=== PATIENT | female | born 1965 | race Caucasian/White ===

== ENCOUNTER 2020-04-16 10:23 | Outpatient (CLI) | payer OTHER, SELFPAY ==
--- NOTE | ~2020-04-16 | XR_ITS ---
EXAMINATION: XR knee RT min 4V DATE: 04/16/2020 10:49 INDICATION: Right knee pain and swelling. TECHNIQUE: 4 views of right knee were obtained. COMPARISON: None. FINDINGS: There is varus attenuation at the knee. No fracture. There is moderate osteoarthritis of me dial compartment and mild osteoarthritis of lateral and patellofemoral compartments. There is a moder ate-sized knee joint effusion. IMPRESSION: 1. Moderate right knee osteoarthritis. 2. Moderate-sized right knee joint effusion. Reviewed, dictated and finalized at location A.
== END 2020-04-16 10:24 | disposition home or self-care (01) ==
PROVIDERS: PCP Family Medicine
DX: M25.561 Pain in right knee (principal); M17.11 Unilateral primary osteoarthritis, right knee; M25.461 Effusion, right knee
CPT/HCPCS: 73564

== ENCOUNTER 2021-08-18 09:34 | Outpatient (CLI) | payer OTHER, SELFPAY ==
--- NOTE | ~2021-08-18 | MR_ITS ---
EXAMINATION: MR knee LT wo con DATE: 08/18/2021 10:35 INDICATION: Primary osteoarthritis of the left knee with chronic left knee pain. TECHNIQUE: Magnetic resonance imaging (MRI) of the left knee was performed without intravenous contra st. Sequences included coronal PD-weighted FSE, coronal PD-weighted FS FSE, sagittal T2-weighted FSE , sagittal PD-weighted FS FSE and axial PD weighted fat saturated FSE. COMPARISON: Left femur MRI dated 08/27/2017 FINDINGS: Medial compartment: Tear contacting the inferior articular surface at the midpoint of the body of the medial meniscus. On the coronal images the configuration suggests a longitudinal tear is evident on only one the single coronal images on both sequences with appearance on both the axial and sagittal images favoring a rad ial tear. Partial-thickness cartilage loss with mild chondral surface irregularity along the weightbe aring medial femoral condyle and the medial tibial plateau. There is mild subarticular edema at the a nterior aspect of the medial tibial plateau. Lateral compartment: Lateral meniscus is normal. Articular cartilage is normal. Patellofemoral compartment: Partial thickness patellar cartilage loss with more focal deep fissuring with subarticular edema at t he medial patellar facet and apical ridge. Deep chondral fissuring with subtle underlying cortical ir regularity inferolateral aspect of the medial trochlea. Ligaments and tendons: Anterior and posterior cruciate ligaments are normal. The medial collateral ligament and fibular alanis ateral ligament complex are normal. The extensor mechanism is normal. The visualized medial and later al hamstring tendons as well as the iliotibial band are normal. Fluid: Small to moderate left knee joint effusion with mild synovitis at the suprapatellar pouch. No loose o steochondral bodies identified. Osseous/other: Cystic change at the proximal tibia near the footplate of the posterior cruciate ligament and posteri or horn of the medial meniscus. No fracture or pathologic marrow replacing process. IMPRESSION: 1. Tear at the body of the medial meniscus most likely radial configuration. 2. Medial compartment predominant tricompartmental osteoarthritis with regions of moderate and high-g rade chondromalacia. Reviewed, dictated and finalized at location A. IMPRESSION: 1. Tear at the body of the medial meniscus most likely radial configuration. 2. Medial compartment predominant tricompartmental osteoarthritis with regions of moderate and high-grade chondromalacia.
== END 2021-08-18 09:35 | disposition home or self-care (01) ==
PROVIDERS: PCP Family Medicine; Visit Provider Nurse Practitioner
DX: M17.12 Unilateral primary osteoarthritis, left knee (principal); M94.262 Chondromalacia, left knee; S83.242A Other tear of medial meniscus, current injury, left knee, initial encounter
CPT/HCPCS: 73721

== ENCOUNTER 2022-02-02 15:07 | Outpatient (CLI) | payer OTHER, SELFPAY ==
--- NOTE | ~2022-02-02 | CT_ITS ---
EXAMINATION: CT shoulder RT wo con DATE: 02/02/2022 15:51 INDICATION: Right shoulder osteoarthritis. TECHNIQUE: Computed tomography (CT) of the right shoulder was performed without intravenous contrast. Automated exposure control and iterative reconstruction technique were employed. The dose-length pro duct was 474.07 mGy-cm. COMPARISON: None FINDINGS: There is mild emphysema. There is a 4 mm nodule in right lung upper lobe, likely benign. Th ere is a total right shoulder arthroplasty in near-anatomic alignment. No periprosthetic lucency to s uggest loosening or infection. There is moderate osteoarthritis of acromioclavicular joint. There is no asymmetric fatty atrophy of the rotator cuff muscle bellies. IMPRESSION: 1. Total right shoulder arthroplasty in near-anatomic alignment. 2. Moderate osteoarthritis of right acromioclavicular joint. Reviewed, dictated and finalized at location A.
== END 2022-02-02 15:08 | disposition home or self-care (01) ==
PROVIDERS: PCP Family Medicine; Visit Provider Nurse Practitioner Adult Health
DX: M19.011 Primary osteoarthritis, right shoulder (principal); J43.9 Emphysema, unspecified; Z96.611 Presence of right artificial shoulder joint
CPT/HCPCS: 73200

== ENCOUNTER 2022-03-01 15:37 | Outpatient (CLI) | payer OTHER, SELFPAY ==
--- NOTE | ~2022-03-01 | XR_ITS ---
EXAMINATION: XR hip LT min 2V DATE: 03/01/2022 16:06 INDICATION: Left hip pain. TECHNIQUE: 2 views of left hip were obtained. COMPARISON: None. FINDINGS: Bone alignment is normal. No fracture. Left hip joint space is normal. IMPRESSION: 1. Normal left hip. Reviewed, dictated and finalized at location A. IMPRESSION: 1. Normal left hip.
== END 2022-03-01 15:38 | disposition home or self-care (01) ==
PROVIDERS: PCP Family Medicine; Visit Provider Nurse Practitioner Adult Health
DX: M16.12 Unilateral primary osteoarthritis, left hip (principal)
CPT/HCPCS: 73502

== ENCOUNTER 2022-10-06 11:39 | Emergency (ER) | payer OTHER, SELFPAY ==
--- NOTE | ~2022-10-06 | XR_ITS ---
EXAMINATION: XR knee LT 3V DATE: 10/06/2022 12:14 INDICATION: Left knee pain. Contusion. TECHNIQUE: 3 views of left knee were obtained. COMPARISON: None. FINDINGS: Bone alignment is normal. No fracture. There is moderate osteoarthritis of medial compartme nt and mild osteoarthritis of lateral and patellofemoral compartments. No knee joint effusion. IMPRESSION: 1. Moderate left knee osteoarthritis. Reviewed, dictated and finalized at location A. PREPARATION KITCHEN AIDE
--- NOTE | ~2022-10-06 | XR_ITS ---
EXAMINATION: XR knee RT 3V DATE: 10/06/2022 12:14 INDICATION: Right knee pain and contusion. TECHNIQUE: 3 views of right knee were obtained. COMPARISON: Right knee radiographs 04/16/2020 FINDINGS: Bone alignment is normal. There is a nondisplaced sagittal fracture of patella through the lateral facet. There is moderate osteoarthritis of medial compartment and mild osteoarthritis of late ral and patellofemoral compartments. There is a moderate-sized knee joint effusion. IMPRESSION: 1. Nondisplaced sagittal fracture of patella involving the lateral facet. 2. Moderate right knee osteoarthritis. 3. Moderate-sized hemarthrosis. Reviewed, dictated and finalized at location A. [employer]
--- NOTE | 2022-10-06 11:47 | ED.EXTPRO ---
HPI - Extremity Problem General Stated complaint: Both Knee Pain Time Seen by Provider: 10/06/22 11:45 Source: patient Mode of arrival: ambulatory Limitations: no limitations History of Present Illness HPI Narrative: Ms. Holden is a 57-year-old female patient presenting to clinic today with complaints of bilateral knee pain after falling just prior to arrival today. she reports that she was walking her dog when her dog got away from her on the leash and she gwyn the dog and jumped to try to catch the leash and landed on her knees and hands she reports just small abrasions to the hands but is more concerned about her knee pain. Is having some swelling to the right knee and pain to the anterior knees. Does have abrasions to bilateral knees as well. History of knee osteoarthritis. States that it feels as though her knee cap is pulling upwards when she is walking Related Data Allergies Allergy/AdvReac Type Severity Reaction Status Date / Time No Known Allergies Allergy Unverified 05/23/19 08:06 Review of Systems Review of Systems: Pertinent positives per HPI. Patient denies any fever, chills, rash, headache, visual changes, dizziness, cough, runny nose, sore throat, shortness of breath, chest pain, palpitations, nausea, vomiting, diarrhea, constipation, abdominal pain, or any urinary issues. FOR[facility]LY [facility] Family History Family History Other Diabetes mellitus Family history of malignant neoplasm Social History Social History Smoking status: Current every day smoker Alcohol intake: current Comments At the time of my signature, I reviewed and agree with the nursing past medical, surgical, social, and family history. There is no relevant family history pertinent to the patient complaint. Exam Narrative: General: Well-developed, well nourished, in no apparent distress Head: Normocephalic, atraumatic. Cardio: Regular rate and rhythm, s1 and s2 normal, no murmur appreciated. Resp: Clear to auscultation bilaterally, no rhonchi, rales, wheezing or rubs. Musculoskeletal: No deformity, right knee swelling,tender to palpation to the anterior bilateral knees, pain with flexion-extension of the knee with crepitus bilaterally,grossly normal range of motion, muscle strength strong and equal, peripheral pulse strong, no edema, no cyanosis, normal gait and station Course Course Emergency Course: Portions of this record may have been created with voice recognition software. Level of Care: Express Care Visit Vital Signs Vital signs: Vital Signs Temperature 36.5 C 10/06/22 11:49 Pulse Rate 76 10/06/22 11:49 Respiratory Rate 18 10/06/22 11:49 Blood Pressure 118/73 10/06/22 11:49 Pulse Oximetry 98 10/06/22 11:49 Oxygen Delivery Room Air 10/06/22 11:49 Temperature 36.5 C 10/06/22 11:49 Pulse Rate 76 10/06/22 11:49 Respiratory Rate 18 10/06/22 11:49 Blood Pressure 118/73 10/06/22 11:49 Pulse Oximetry 98 10/06/22 11:49 Oxygen Delivery Room Air 10/06/22 11:49 Vital signs reviewed MDM - Extremity (Nontraumatic) MDM Narrative Medical decision making narrative: At the time of visit patient is resting on the exam table. X-rays were performed of the bilateral knee and show a sagittal fracture of the right patella involving the lateral facet with hemoarthrosis and moderate osteoarthritis. Left x-ray was negative for fracture however shows moderate osteoarthritis. Patient was placed in a knee immobilizer and Sahil wrap. Supportive measures were discussed with the patient she voiced understanding discharge instructions. Will have her follow-up with Dr. De La Paz she is to call his office this afternoon for an appointment to try to get in tomorrow or early next week. Differential Diagnosis Differential diagnosis: Likely other ( Knee fracture, patella fracture, osteoarthritis,
[2022-10-06 11:49] VITALS: BP 118/73; PULSE 76; RESP 18; TEMP 36.5; O2SAT 98
== END 2022-10-06 13:00 | disposition home or self-care (01) ==
PROVIDERS: Emergency Provider Nurse Practitioner Family; PCP Family Medicine
DX: S80.212A Abrasion, left knee, initial encounter (principal); S80.211A Abrasion, right knee, initial encounter; W19.XXXA Unspecified fall, initial encounter; Y93.K1 Activity, walking an animal; M25.061 Hemarthrosis, right knee; S82.091A Other fracture of right patella, initial encounter for closed fracture; S80.02XA Contusion of left knee, initial encounter; S80.01XA Contusion of right knee, initial encounter; M17.0 Bilateral primary osteoarthritis of knee; F17.290 Nicotine dependence, other tobacco product, uncomplicated
CPT/HCPCS: 73562; 99214; G0463; L1830

== ENCOUNTER 2023-01-31 15:50 | Outpatient (CLI) | payer OTHER, SELFPAY ==
--- NOTE | ~2023-01-31 | MR_ITS ---
EXAMINATION: MR knee LT wo con DATE: 01/31/2023 16:40 INDICATION: Medial meniscal tear Anterior and medial left knee pain TECHNIQUE: Magnetic resonance imaging (MRI) of the left knee was performed without intravenous contra st. Sequences included coronal PD-weighted FSE, coronal PD-weighted FS FSE, sagittal T2-weighted FSE , sagittal PD-weighted FS FSE and axial PD weighted fat saturated FSE. COMPARISON: Left knee radiographs dated 10/06/2022 FINDINGS: Medial compartment: Small tear involving the inferior half of the body of the medial meniscus. The tear appears likely co mplex with combination of longitudinal horizontal tear plane extending to the inferior articular surf charles and small radial tear plane involving the portion meniscus inferior to the horizontal tear plane. There is deep chondral ulceration involving greater than 50% the cartilage thickness along the anter ior to central weightbearing medial femoral condyle and anterior aspect of the medial tibial plateau, both with small regions of mild underlying subarticular edema-like signal change. Small marginal ost eophytes are present. Lateral compartment: Lateral meniscus is normal. Small partial-thickness chondral fissure without degenerative subchondral changes at the central aspect of the lateral tibial plateau. Patellofemoral compartment: Partial-thickness chondral ulceration and deep fissuring with minimal underlying subarticular edema-l lina signal change at the medial patellar facet and apical ridge. Shallow chondral ulceration and deep fissuring at the inferior aspect of the medial trochlea. Ligaments and tendons: Anterior and posterior cruciate ligaments are normal. The medial collateral ligament and fibular alanis ateral ligament complex are normal. Patellar tendon is normal. Mild quadriceps tendinopathy. The visu alized medial and lateral hamstring tendons as well as the iliotibial band are normal. Fluid: Small left knee joint effusion with mild synovitis at the suprapatellar pouch. No loose osteochondral bodies identified. Osseous/other: Intraosseous ganglion cyst deep to the tibial footplate of the posterior horn of the medial meniscus and tibial insertion of the posterior cruciate ligament. No fracture or pathologic marrow replacing p rocess. IMPRESSION: 1. Small likely complex tear at the body of the medial meniscus. 2. Tricompartmental osteoarthritis, mild to moderate severity with moderate and high-grade chondromal acia in the medial compartment, mild with additional moderate and high-grade chondromalacia at the pa tellofemoral compartment and minimal with small region of moderate grade chondromalacia in the latera l compartment. Reviewed, dictated and finalized at location L. IMPRESSION: 1. Small likely complex tear at the body of the medial meniscus. 2. Tricompartmental osteoarthritis, mild to moderate severity with moderate and high-grade chondromalacia in the medial compartment, mild with additional mode rate and high-grade chondromalacia at the patellofemoral compartment and minima l with small region of moderate grade chondromalacia in the lateral compartment .
== END 2023-01-31 15:51 | disposition home or self-care (01) ==
PROVIDERS: PCP Family Medicine; Visit Provider Orthopaedic Surgery
DX: S83.242A Other tear of medial meniscus, current injury, left knee, initial encounter (principal); M17.12 Unilateral primary osteoarthritis, left knee; M94.262 Chondromalacia, left knee
CPT/HCPCS: 73721

== ENCOUNTER 2023-02-09 16:49 | Emergency (ER) | payer OTHER, SELFPAY ==
[2023-02-09 17:00] VITALS: BP 134/67; PULSE 83; RESP 20; TEMP 36.9; O2SAT 100
--- NOTE | 2023-02-09 17:02 | ED.SKABFB ---
HPI - Skin/Abscess/Foreign Bdy General Chief complaint: Skin/Abscess/Foreign Body Stated complaint: Arm Pit Pain Time Seen by Provider: 02/09/23 17:03 Source: patient, RN notes reviewed and old records reviewed Mode of arrival: ambulatory Limitations: no limitations History of Present Illness HPI narrative: 58-year-old female presents to the [facility] with lateral right breast lump and pain. States that she takes hydrocodone. Noticed the area for unknown amount of time. small less than 1 cm palpable nodule noted without erythema, orange peel looking, fluctuance to the lateral right breast. Related Data Home Medications Medication Instructions Recorded Confirmed cyclobenzaprine 10 mg tablet mg 02/09/23 hydrocodone 10 mg-acetaminophen tablet 02/09/23 325 mg tablet quetiapine 200 mg tablet mg 02/09/23 trazodone 100 mg tablet mg 02/09/23 Allergies Allergy/AdvReac Type Severity Reaction Status Date / Time No Known Allergies Allergy Verified 02/09/23 17:26 Review of Systems Review of Systems: All systems reviewed & are unremarkable except as noted in HPI and below Constitutional: Constitutional: Reports no additional constitutional complaints Eyes: Eyes: Reports no additional eye complaints ENT: Reports system reviewed and no additional complaints, except as documented Cardiovascular: Cardiovascular: Reports no additional cardiovascular complaints, Denies chest pain and Denies dyspnea Respiratory: Respiratory: Reports no additional respiratory complaints, Denies chest congestion, Denies cough and Denies dyspnea Gastrointestinal: Gastrointestinal: Reports no additional gastrointestinal complaints, Denies abdominal pain, Denies nausea and Denies vomiting Musculoskeletal: Musculoskeletal: Reports no additional musculoskeletal complaints Integumentary/Breasts: Skin/Breast: Reports as per HPI and Reports breast mass Neurologic: Reports system reviewed and no additional complaints, except as documented Psychiatric: Psychiatric: Reports no additional psychiatric complaints Allergic/Immunologic: Allergic/Immunologic: Reports no additional allergic/immunologic complaints REPLACED BY [facility] Family History Family History Other Diabetes mellitus Family history of malignant neoplasm Social History Social History Smoking status: Current every day smoker Alcohol intake: current Comments At the time of my signature, I reviewed and agree with the nursing past medical, surgical, social, and family history. There is no relevant family history pertinent to the patient complaint. Exam Const: General: cooperative, healthy appearing, comfortable, no acute distress, well developed, alert, anxious and well nourished Nutritional Appearance: well nourished Orientation/consciousness: patient oriented x3 Limitations: no limitations HENMT: Head: normal to inspection Ears: hearing grossly normal bilaterally and external ears normal Face/Nose/Sinus: Normal external nose present, Normal nares present, Normal nasal mucous membranes and turbinates present and normal facial exam Face and sinus: normal facial exam Mouth: Yes Normal oral and palatal mucosa present, Yes lip normal and Yes moist mucous membranes Eyes: General: appearance normal, both eyes and all related structures Alignment and Position: alignment normal Periorbital: periorbital findings normal Conjunctivae: conjunctivae normal Pupils: Equal, round and reactive pupils present EOM: EOMs intact bilaterally Neck: Neck: normal visual inspection, full ROM, no lymphadenopathy and no meningeal signs Chest: Chest palpation & inspection: normal inspection of the chest Breast/axilla inspection: normal inspection of the axillae, abnormal inspection of the breast (Tenderness to the 9:00 right breast) and no supernumerary breasts Resp: Effort & Inspection: normal re
== END 2023-02-09 17:31 | disposition home or self-care (01) ==
PROVIDERS: Emergency Provider Nurse Practitioner; PCP Family Medicine
DX: N64.4 Mastodynia (principal); F17.200 Nicotine dependence, unspecified, uncomplicated
CPT/HCPCS: 99211; G0463

== ENCOUNTER 2023-02-22 07:54 | Outpatient (CLI) | payer OTHER, SELFPAY ==
--- NOTE | 2023-02-22 08:50 | ECG_ITS ---
Measurements Intervals [place] Rate: 70 P: 16 SC: 160 QRS: 32 QRSD: 71 T: 60 QT: 374 QTc: 405 Interpretive Statements SINUS RHYTHM NORMAL ECG NO PREVIOUS ECG AVAILABLE FOR COMPARISON Electronically Signed On 02-22-2023 13:51:31 CDT by Uvaldo Red M.D.
[2023-02-22 09:32] LABS: Basophils Absolute Auto 0.1 K/mm3 (0.0-0.1); Basophils Percent Auto 0.8 % (0.2-1.2); Eosinophils Absolute Auto 0.4 K/mm3 (0-0.3); Eosinophils Percent Auto 5.4 % (0-4.4); Hematocrit 44.3 % (37.0-47.0); Immature Granulocyte Absolute 0.02 K/mm3 (0.00-0.031); Immature Granulocyte Percent A 0.3 % (0-0.5); Lymphocytes Absolute Auto 3.14 K/mm3 (0.9-3.2); Lymphocytes Percent Auto 43.3 % (18.3-44.2); Mean Corpuscular HGB Conc 33.9 g/dl (32-36); Mean Corpuscular Hemoglobin 32.1 pg (26-34); Mean Corpuscular Volume 94.7 fl (80-100); Mean Platelet Volume 9.9 fl (7.4-10.4); Monocytes Absolute Auto 0.6 K/mm3 (0.1-0.6); Neutrophils Absolute Auto 3.1 K/mm3 (1.3-6.7); Neutrophils Percent Auto 42.2 % (45.5-73.1); Platelet Count Result 202 k/mm3 (150-375); Red Blood Count 4.68 M/mm3 (4.2-5.4); Red Cell Distribution Width 12.4 % (11.5-14.5); White Blood Count 7.3 K/mm3 (4.5-10.0)
[2023-02-22 09:39] LABS: Albumin Level 4.8 g/dL (3.5-5.1); Estimated Glomerular Filt Rate > 60; Glucose 106 mg/dL (65-110)
[2023-02-22 09:44] LABS: Urine Cotinine POSITIVE
== END 2023-02-22 07:55 | disposition home or self-care (01) ==
LOC: ANHSURGERY 07:58
PROVIDERS: PCP Family Medicine; Visit Provider Orthopaedic Surgery
DX: Z01.812 Encounter for preprocedural laboratory examination (principal); Z01.810 Encounter for preprocedural cardiovascular examination; M17.11 Unilateral primary osteoarthritis, right knee
CPT/HCPCS: 80307; 82040; 82565; 82947; 83036; 85025; 87081; 93005

== ENCOUNTER 2023-05-09 08:48 | Outpatient (CLI) | payer OTHER, SELFPAY ==
--- NOTE | ~2023-05-09 | MM_ITS ---
EXAMINATION: MM screening radha BI w be HISTORY: Screening mammogram TECHNIQUE: Craniocaudal and mediolateral oblique 3-D tomosynthesis images were obtained and synthetic 2-D images were generated. CAD analysis was submitted and interpreted. COMPARISON: 02/20/2018 bilateral screening mammogram 03/27/2018 stereotactic biopsy right breast, reported benign BREAST PARENCHYMAL COMPOSITION: There are scattered areas of fibroglandular density. FINDINGS: Biopsy marker is noted in the mid to upper outer right breast. Scattered bilateral benign c alcifications. There is no evidence of suspicious mass, calcification, or architectural distortion to suggest malignancy in either breast. There has been no suspicious interval change. IMPRESSION: 1. No mammographic evidence of malignancy. 2. Recommend routine screening mammography in one year. BI-RADS Category 2: Benign finding(s). Reviewed, dictated and finalized at location A.
== END 2023-05-09 08:49 | disposition home or self-care (01) ==
LOC: ANHIMG 08:50
PROVIDERS: PCP Nurse Practitioner Adult Health; Visit Provider Nurse Practitioner Adult Health
DX: Z12.31 Encounter for screening mammogram for malignant neoplasm of breast (principal)
CPT/HCPCS: 77063; 77067

== ENCOUNTER 2023-10-26 12:58 | Outpatient (CLI) | payer OTHER, SELFPAY ==
[2023-10-26 14:05] LABS: Influenza A QL RT-PCR Negative (Negative); Influenza B QL RT-PCR Negative (Negative); RSV RNA, RT-PCR Negative (Negative); SARS-CoV-2 RNA PCR Positive (Negative)
== END 2023-10-26 12:59 | disposition home or self-care (01) ==
LOC: ANHLAB 13:02
PROVIDERS: PCP Nurse Practitioner Adult Health; Visit Provider Nurse Practitioner Adult Health
DX: J81.1 Chronic pulmonary edema (principal); R50.81 Fever presenting with conditions classified elsewhere; J34.89 Other specified disorders of nose and nasal sinuses; Z20.822 Contact with and (suspected) exposure to COVID-19
CPT/HCPCS: 87637

== ENCOUNTER 2024-02-12 14:31 | Outpatient (CLI) | payer OTHER, SELFPAY ==
--- NOTE | ~2024-02-12 | CT_ITS ---
EXAMINATION: CT abdomen pelvis wo con DATE: 02/12/2024 14:50 INDICATION: Cirrhosis and abdominal pain TECHNIQUE: Computed tomography (CT) of the abdomen and pelvis was performed without intravenous contr ast. The dose-length product (DLP) was 575.24 mGy-cm. Automated exposure control and iterative recons truction technique were employed. COMPARISON: None FINDINGS: A calcified nodule of the left lower lobe is consistent with old granulomatous disease. The heart size is normal. Punctate calcifications in an otherwise normal spleen likely represent healed granulomatous disease. There appears to be mild nodularity of the liver surface, consistent with hist ory of cirrhosis. The pancreas, gallbladder, and right adrenal gland are normal. There is a 2.2 cm lo w-density mass of the left adrenal gland, consistent with an adenoma. The kidneys are unremarkable. N o pathologically enlarged abdominal or pelvic lymph nodes are identified. No free intraperitoneal gas or evidence of bowel obstruction. There is severe lumbar spondylosis. IMPRESSION: 1. No CT correlate identified for the patient's abdominal pain. Reviewed, dictated and finalized at location F.
== END 2024-02-12 14:32 | disposition home or self-care (01) ==
PROVIDERS: PCP Registered Nurse; Visit Provider Registered Nurse
DX: R10.9 Unspecified abdominal pain (principal); K74.60 Unspecified cirrhosis of liver
CPT/HCPCS: 74176

== ENCOUNTER 2024-02-22 09:50 | Emergency (ER) | payer OTHER, SELFPAY ==
--- NOTE | ~2024-02-22 | US_ITS ---
US venous doppler [facility] DATE: 02/22/2024 11:07 INDICATION: Knee pain. Mild lower left extremity swelling. TECHNIQUE: Real-time and color flow imaging and Doppler analysis of the veins of the left lower extre mity COMPARISON: None FINDINGS: The greater saphenous vein is patent. There is spontaneous and phasic flow and normal augme ntation and color flow signal and normal compression of the veins of the left lower extremity. IMPRESSION: No evidence of deep venous thrombosis of left leg Reviewed, dictated and finalized at Location A. Reviewed, dictated and finalized at location B.
--- NOTE | ~2024-02-22 | XR_ITS ---
EXAMINATION: XR knee LT min 4V DATE: 02/22/2024 10:18 INDICATION: Left knee pain and swelling. TECHNIQUE: 4 views of left knee were obtained. COMPARISON: Left knee radiographs 10/06/2022 FINDINGS: Bone alignment is normal. No fracture. There is moderate osteoarthritis of medial compartme nt and mild osteoarthritis of lateral and patellofemoral compartments. There is a small knee joint ef fusion. IMPRESSION: 1. Moderate left knee osteoarthritis. 2. Small left knee joint effusion. Reviewed, dictated and finalized at location A.
[2024-02-22 10:18] VITALS: BP 141/80; PULSE 68; RESP 18; TEMP 36.3; O2SAT 98
--- NOTE | 2024-02-22 10:44 | ED.LOWEXIN ---
HPI - Extremity Injury (Lower) General Chief Complaint: Extremity Injury, Lower Stated Complaint: left knee pain Time Seen by Provider: 02/22/24 09:57 Source: patient Mode of arrival: ambulatory Limitations: no limitations History of Present Illness HPI Narrative: Patient is a 59 year old female who presents the ED with report of left knee pain. Patient reports history of arthritis in bilateral knees, stating she needs both knees replaced. She has previously seen Dr. Boateng with Orthopedics for this. She states over the last couple days, she has had increasing pain and swelling in her left knee. She denies any known injury, fall, twisting, strenuous activity. She has been taking her home [place] for the pain without much improvement. Is able to ambulate, but has pain with this. She is concerned she has a blood clot. She denies previous history of blood clots. Denies chest pain or shortness breath. Denies redness or warmth of knee, fevers. Related Data Home Medications Medication Instructions Recorded Confirmed hydrocodone 10 mg-acetaminophen 1 tablet PO PRN PRN Pain 02/09/23 02/22/24 325 mg tablet quetiapine 200 mg tablet 200 mg PO HS 02/09/23 02/22/24 trazodone 100 mg tablet 100 mg PO HS 02/09/23 02/22/24 duloxetine 60 mg capsule,delayed 60 mg PO DAILY 02/22/23 02/22/24 release Allergies Allergy/AdvReac Type Severity Reaction Status Date / Time No Known Allergies Allergy Verified 02/22/24 10:29 Review of Systems Review of Systems: CONSTITUTIONAL: Denies fever, chills, or sweats. CARDIOVASCULAR: Denies chest pain. RESPIRATORY: Denies dyspnea. MUSCULOSKELETAL: See HPI. NEUROLOGIC: Denies headache, dizziness, numbness, or weakness. All systems reviewed & are unremarkable except as noted in HPI and below PMFSH Past Medical History Medical History Cirrhosis Osteoarthritis Family History Family History Other Diabetes mellitus Family history of malignant neoplasm Social History Social History Smoking packs per day: 0.5 Smoking cigarettes per day: 10.0 Years smoked: 38 Smoking pack-years: 19.00 Smoking status: Former smoker Tobacco type: cigarettes Smoking end date: 01/28/23 Additional smoking assessment comments: DENIES ANY FORM OF TOBACCO USE Alcohol intake: current Substance use: current Substance use type: marijuana Other substance usage details: SMOKES MARIJUANA 2 X WK SINCE 2020 Last use: 02/20/23 Living arrangements: alone Spiritual care concerns: No Exam Narrative: GENERAL: Appears older than stated age, non-toxic, in no acute distress. HEAD: Normocephalic, atraumatic. RESPIRATORY: Airway patent, respirations nonlabored. CARDIOVASCULAR: Regular rate and rhythm without murmurs, rubs, or gallops. Pedal pulses easily palpable, intact bilaterally. MUSCULOSKELETAL: Moves all extremities. No gross deformities. Mild limited flexion range of motion of knee past 90?. Mild swelling to left anterior knee, worse medially, with focal tenderness - worst along medial joint spaces. Mild swelling noted of left lower leg compared to right. No warmth or erythema. No palpable fluctuance. No pitting edema. Sensation is intact. Capillary refill is intact. SKIN: Warm, dry, normal color. NEURO: A&O X3. Speech clear. Cranial nerves II-XII grossly intact. PSYCHIATRIC: Appropriate mood and affect. Normal interaction. Course Vital Signs Vital signs: Vital Signs Temperature 97.4 F L 02/22/24 10:18 Pulse Rate 68 02/22/24 10:18 Respiratory Rate 18 02/22/24 10:18 Blood Pressure 141/80 H 02/22/24 10:18 Pulse Oximetry 98 02/22/24 10:18 Oxygen Delivery Room Air 02/22/24 10:18 Temperature 97.4 F L 02/22/24 10:18 Pulse Rate 68 02/22/24 10:18 Respiratory Rate
[2024-02-22] MEDS: KETOROLAC 30 MG/ML VIAL (*BKC) IM (11:03)
== END 2024-02-22 11:40 | disposition home or self-care (01) ==
PROVIDERS: Emergency Provider Physician Assistant; PCP Registered Nurse
DX: S86.912A Strain of unspecified muscle(s) and tendon(s) at lower leg level, left leg, initial encounter (principal); M17.0 Bilateral primary osteoarthritis of knee; M25.462 Effusion, left knee; K74.60 Unspecified cirrhosis of liver; M19.90 Unspecified osteoarthritis, unspecified site; Z87.891 Personal history of nicotine dependence; X58.XXXA Exposure to other specified factors, initial encounter
CPT/HCPCS: 73564; 93971; 96372; 99284; J1885

== ENCOUNTER 2024-03-13 15:01 | Outpatient (CLI) | payer OTHER, SELFPAY ==
--- NOTE | ~2024-03-13 | MR_ITS ---
EXAMINATION: MR knee LT wo con DATE: 03/13/2024 15:54 INDICATION: Medial meniscal tear presenting with left knee pain TECHNIQUE: Magnetic resonance imaging (MRI) of the left knee was performed without intravenous contra st. Sequences included coronal PD-weighted FSE, coronal PD-weighted FS FSE, sagittal T2-weighted FSE , sagittal PD-weighted FS FSE and axial PD weighted fat saturated FSE. COMPARISON: None. FINDINGS: Medial compartment: Longitudinal horizontal horizontal tear plane extending to the inferior articular surface of the ante rior horn, body and medial side of the posterior horn, likely crossing the inner free edge at the mid posterior horn 4 contacting the superior articular surface at the lateral side of the posterior horn . At the junction of the anterior horn and body there is caudal subluxation of the flap of meniscus i nferior to the tear plane which is positioned in the inferior gutter along the rim of the anteromedia l medial tibial plateau. There is deep chondral ulceration with associated subarticular edema-like si gnal change at the anteromedial quadrant of the medial tibial plateau and juxtaposed anteromedial eileen ghtbearing medial femoral condyle. Additional deep chondral ulceration without degenerative subchondr al changes at the midline of the anterior to central weightbearing medial femoral condyle and more sh allow chondral ulceration at the posterior weightbearing medial femoral condyle and at the central as pect of the medial tibial plateau. Lateral compartment: Lateral meniscus is normal. Articular cartilage is normal. Patellofemoral compartment: Deep chondral ulceration and fissuring along the medial patellar facet and apical ridge with tiny foc us of subarticular edema-like signal change and cephalad aspect of the apical ridge. Additional chond ral ulceration and fissuring with mild underlying edema-like signal change at the inferolateral aspec t of the lateral trochlea. Less severe partial thickness chondral ulceration along the inferior aspec t of the more medial and lateral trochlea and trochlear groove. Ligaments and tendons: Anterior and posterior cruciate ligaments are normal. The medial collateral ligament and fibular alanis ateral ligament complex are normal. The extensor mechanism is normal. The visualized medial and later al hamstring tendons as well as the iliotibial band are normal. Fluid: Synovitis without significant joint effusion at the suprapatellar pouch. No loose osteochondral lauri s identified. Osseous/other: Bone alignment is normal. No fracture or pathologic marrow replacing process. IMPRESSION: 1. Medial meniscal tear with severe osteoarthritis with high-grade chondromalacia in the medial dae rtment. 2. Mild osteoarthritis with additional moderate and high-grade chondromalacia at the patellofemoral c ompartment. Reviewed, dictated and finalized at location A. IMPRESSION: 1. Medial meniscal tear with severe osteoarthritis with high-grade chondromalac ia in the medial compartment. 2. Mild osteoarthritis with additional moderate and high-grade chondromalacia a t the patellofemoral compartment.
== END 2024-03-13 15:02 | disposition home or self-care (01) ==
LOC: ANHIMG 15:02
PROVIDERS: PCP Registered Nurse; Visit Provider Orthopaedic Surgery
DX: S83.242A Other tear of medial meniscus, current injury, left knee, initial encounter (principal); X58.XXXA Exposure to other specified factors, initial encounter; M17.12 Unilateral primary osteoarthritis, left knee
CPT/HCPCS: 73721

== ENCOUNTER 2025-01-13 12:23 | Outpatient (CLI) | payer MEDICAID, SELFPAY ==
[2025-01-13 13:00] LABS: Alanine Aminotransferase 23 U/L (6-35); Albumin Level 4.7 g/dL (3.5-5.1); Alkaline Phosphatase 64 U/L (38-126); Anion Gap 11 mmol/L (4-12); Aspartate Amino Transferase 22 U/L (14-36); Bilirubin,Total 0.6 mg/dL (0.2-1.3); Blood Urea Nitrogen 8 mg/dL (7-17); Calcium 9.5 mg/dL (8.4-10.2); Carbon Dioxide 24 mmol/L (22-30); Chloride 103 mmol/L (98-107); Estimated Glomerular Filt Rate > 60; Glucose 98 mg/dL (65-110); Potassium 4.4 mmol/L (3.4-5.0); Sodium 138 mmol/L (137-145)
[2025-01-13 13:53] LABS: Hemoglobin A1C 6.2 % (<5.7)
--- OUTSIDE RECORDS SUMMARY | 2025-01-13 14:01 | XMS_ITS | Clinical Summary ---
Author Organization [facility] [employer] Address [address] [place] [address] Care Team Providers Care Shear Tender Name Role Phone Elias Macias MD Primary Care Provider Source Comments [facility] [employer]non-owned Affiliates and Associated Physician Practices is amultiple site organization consisting of ambulatory clinics and hospital sitesin [place], [place] and [place]. This disclosure is being madepursuant to the Care Everywhere program and may not contain all information available regarding this patient. Last updated 18.[facility] [employer] Allergies No known active allergies Medications * Be aware that medications may not be up to date on this document. Alwaysverify current medications with the patient. Medication Sig Dispensed Refills Start Date End Date Status traZODone (DESYREL) 100 MG tablet TK 1 T PO QHS PRN 3 03/11/2018 Acti ve DULoxetine (CYMBALTA) 60 MG capsule Take 60 mg by mouth once daily Active furosemide (LASIX) 20 MG tablet TAKE 1 TABLET BY MOUTH EVERY DAY 30 tablet 06/16/2019 Active Active Problems Problem Noted Date Diagnosed Date Cirrhosis of liver without ascites 12/20/2018 Chronic hepatitis C without hepatic coma 018 Overview (06/24/2018): Genotype 1a 06/18/18 Fibroscan CAP 282, E 19.0 kPa Social History Tobacco Use Types Packs/Day Years Used Date Smoking Tobacco: Every Day Cigarettes 1 40 Smokeless Tobacco: Never Alcohol Use Standard Drinks/Week Comments Yes 0 (1 standard drink = 0.6 oz pur e alcohol) 2-3 times/per year Sex and Gender Information Value Date Recorded Sex Assigned at Not on file Gender Identity Not on file Sexual Orientation Not on file Last Filed Vital Signs Vital Sign Reading Time Taken Comments Blood Pressure 126/72 03/11/2019 3:00 PM CDT Pulse 96 03/11/2019 3:00 PM CDT Temperature 36.6 C (97.9 F) 03/11/2019 3:00 PM CDT Respiratory Rate 18 03/11/2019 3:00 PM CDT Oxygen Saturation 98% 03/11/2019 3:00 PM CDT Inhaled Oxygen Concentration - - Weight 86.5 kg (190 lb 12.8 oz) 03/11/2019 3:00 PM CDT Height 165.1 cm (5' 5 ) 03/11/2019 3:00 PM CDT Body Mass Index 31.75 03/11/2019 3:00 PM CDT Plan of Treatment Health Maintenance Due Date Last Done Comments COLOGUARD (AGES 45-75) - COLON CA SCREENING 1965 COLON MONITORING 1965 COLONOSCOPY - COLON CA SCREENING 1965 CT COLONOGRAPHY - COLON CA SCREENING 1965 Colorectal Cancer Screening 1965 FIT - COLON CA SCREENING 1965 FLEX SIG - COLON CA SCREENING 1965 LIPID TESTING 1965 MAMMOGRAM 1965 HIV SCREENING 02/08/1980 DTAP/TDAP/TD VACCINES (1 - Tdap) 02/08/1984 HEPATITIS B VACCINE (1 of 3 - 19+ 3-dose series) 02/08/1984 PNEUMOCOCCAL VACCINE 50+ (1 of 2 - PCV) 02/08/1984 PNEUMOCOCCAL VACCINE (1 of 2 - PCV) 02/08/1984 PAP with HPV 1995 ZOSTER VACCINE (1 of 2) 2015 SCREENING FOR DIABETES 12/25/2021 9, 08/13/2018, 04/03/2018 COVID-19 VACCINE ( - 2023- season) 2024 INFLUENZA VACCINE (#1) 2024 03/26/2015 DEPRESSION SCREENING 11/20/2024 HEPATITIS C SCREENING Completed 03/11/2019 , 01/01/2019, 12/25/2018, Additional history exists HIB VACCINE Aged Out No longer eligi ble based on patient's age to complete this topic HPV VACCINE Aged Out No longer eligi ble based on patient's age to complete this topic MENINGOCOCCAL (Group B) VACCINE Aged Out No longer eligible based on patient's age to complete this topic MENINGOCOCCAL VACCINE Aged Out No ashley karon eligible based on patient's age to complete this topic Goals Goal Patient Goal Type Associated Problems Recent Progress Patient-Stated? Author Medication Management General On track( 019 3:48 PM CDT) Radha Vences RN Note: Expected end date: ongoing Interventions: Take all medications as prescribed Complete Hepatitis C therapy as prescribed Let your doctor know right away about any changes in your medications Make sure to request a refill of your medication at least one week prior to your last dose Procedures Procedure Name Priority Date/Time Associated Diagnosis Comments COMPREHENSIVE METABOLIC PANEL Routine 12/25/2018 11:46 AM [employer] Chronic hepatitis C without hepatic coma (HCC) HEPATITIS C RNA QUANTITATIVE Routine 12/25/2018 11:46 AM [employer] Chronic hepatitis C without hepatic coma (HCC) from Last 3 Months or Most Recently Relevant to Health Maintenance Results * HEPATITIS C RNA QUANTITATIVE (12/25/2018 11:46 AM [employer]) Hepatitis C RNA PCR, Interp Not Detected Not Detected 12/28/2018 1:31 PM [facility] Blood BLOOD SPECIMEN / Unknown Lab Venipuncture / Unknown 12/25/2018 11:46 AM [employer] 12/25/2018 12:43 PM [facility] Narrative [facility] - 12/28/2018 1:31 PM [facility] The Hepatitis C viral (HCV) RNA analysis utilized a serum sample, real-time reverse roller checker PCR, and is reported as Not Detected, Detected (<12 IU/mL), Quantity (IU/mL) or >100,000,000 IU/mL. The limit of quantitation of the assay is 12 IU/mL (100% of samples with this HCV RNA level were detected). The linear range is from 12 IU/mL to 100,000,000 IU/mL. Values less than 12 IU/mL are reported as Detected (<12 IU/mL). Values greater than 100,000,000 IU/mL are reported as > 100,000,000 IU/mL. The detection/quantitation of HCV RNA in serum is based on the isolation of HCV RNA with reverse roller checker of genomic HCV RNA followed by real-time PCR in the presence of an unrelated RNA internal control. The internal control ensures that RNA is isolated, and that no general significant inhibitors of the RT-PCR process are present. The analysis was performed using a [place] FDA approved test methodology ([employer] Real Time HCV). Luz [facility] - CHEMIS TRY ORDERABLES Performing Organization Address City/State/[facility] Co de Phone Number [facility] [address] [phone] * (ABNORMAL) COMPREHENSIVE METABOLIC PANEL (12/25/2018 11:46 AM [employer]) BUN 11 7 - 26 mg/dL 12/25/2018 1:19 PM [facility] Creatinine 0.9 0.6 - 1.2 mg/dL 12/25/2018 1:19 PM [facility] Sodium 142 136 - 145 mmol/L 12/25/2018 1:19 PM [facility] Potassium 4.2 3.5 - 4.5 mmol/L 12/25/2018 1:19 PM [facility] Chloride 105 98 - 107 mmol/L 12/25/2018 1:19 PM [facility] CO2 25 22 - 29 mmol/L 12/25/2018 1:19 PM [facility] Glucose 105 70 - 115 mg/dL 12/25/2018 1:19 PM [facility] Calcium 10.3(H) 8.4 - 10.2 mg/dL 12/25/2018 1:19 PM [facility] Protein Total 7.8 6.0 - 8.3 g/dL 12/25/2018 1:19 PM [facility] Albumin 4.3 3.4 - 5.0 g/dL 12/25/2018 1:19 PM [facility] Bilirubin Total 0.4 0.2 - 1.2 mg/dL 12/25/2018 1:19 PM [facility] Alkaline Phosphatase 62 40 - 150 Units/L 12/25/2018 1:19 PM [facility] ALT 20 0 - 55 Units/L 12/25/2018 1:19 PM [facility] AST 18 5 - 34 Units/L 12/25/2018 1:19 PM [facility] Anion Gap 16 8 - 18 12/25/2018 1:19 PM [facility] BUN/Creatinine Ratio 12 7 - 23 12/25/2018 1:19 PM [facility] Osmolality Calculated 294 270 - 300 mOsm/kg 12/25/2018 1:19 PM [facility] Albumin/Globulin Ratio 1.2 1.1 - 2.3 12/25/2018 1:19 PM [facility] eGFR >60 >60 mL/min/1.7 3 m2 12/25/2018 1:19 PM [facility] Blood BLOOD SPECIMEN / Unknown Lab Venipuncture / Unknown 12/25/2018 11:46 AM [employer] 12/25/2018 12:43 PM [employer] [facility] - CHEMIS TRY ORDERABLES Performing Organization Address [facility] Co de Phone Number [facility] [address] [phone] from Last 3 Months or Most Recently Relevant to Health Maintenance Care Teams Shear Tender Relationship Specialty Start Date End Date Elias Macias MD [address] [place] [address] PCP - General 03/30/18
--- OUTSIDE RECORDS SUMMARY | 2025-01-13 14:01 | XMS_ITS | Patient Health Summary ---
Author Organization [facility] Address [address] [place] [address] Care Team Providers Care Gerentological Physiotherapist Name Role Phone Elias Macias MD Primary Care Provider Note from [facility],non-owned Affiliates and Associated Physician Practices is amultiple site organization consisting of ambulatory clinics and hospital sitesin [place], [place], [place] and [place]. This disclosure is being madepursuant to the Care Everywhere program and may not contain all information available regarding this patient. Last updated 18.[facility] Allergies No known active allergies Medications * Be aware that medications may not be up to date on this document. Alwaysverify current medications with the patient. * traZODone (DESYREL) 100 MG tablet(Started 03/11/2018) TK 1 T PO QHS PRN 3 refills left * DULoxetine (CYMBALTA) 60 MG capsule Take 60 mg by mouth once daily * furosemide (LASIX) 20 MG tablet(Started 06/16/2019) TAKE 1 TABLET BY MOUTH EVERY DAY Active Problems Problem Noted Date Diagnosed Date Cirrhosis of liver without ascites 12/20/2018 Chronic hepatitis C without hepatic coma 018 Social History Tobacco Use Types Packs/Day Years [...] Mass Index 31.75 03/11/2019 3:00 PM CDT Procedures * IR BIOPSY TRANSCATHETER(Performed 01/10/2019) Performed for Liver fibrosis * PATHOLOGY TISSUE(Performed 01/10/2019) Performed for Liver fibrosis * PT-INR [facility](Performed 01/10/2019) Performed for Liver fibrosis * PARACENTESIS ABDOMEN (PERCUTANEOUS)(Performed 12/26/2018) Performed for Cirrhosis of liver without ascites, unspecified hepatic cirrhosis type (HCC) * CBC W AUTO DIFFERENTIAL(Performed 12/25/2018) Performed for Chronic hepatitis C without hepatic coma (HCC) * COMPREHENSIVE METABOLIC PANEL(Performed 12/25/2018) Performed for Chronic hepatitis C without hepatic coma (HCC) * HEPATITIS C RNA QUANTITATIVE(Performed 12/25/2018) Performed for Chronic hepatitis C without hepatic coma (HCC) * US ABDOMEN LIMITED(Performed 12/25/2018) Performed for Cirrhosis of liver without ascites, unspecified hepatic cirrhosis type (HCC) * US ABDOMEN LIMITED(Performed 08/27/2018) Performed for Chronic hepatitis C without hepatic coma (HCC) * HEPATITIS C RNA QUANTITATIVE(Performed 08/13/2018) Performed for Chronic hepatitis C without hepatic coma (HCC) * COMPREHENSIVE METABOLIC PANEL(Performed 08/13/2018) Performed for Chronic hepatitis C without hepatic coma (HCC) * CBC W AUTO DIFFERENTIAL(Performed 08/13/2018) Performed for Chronic hepatitis C without hepatic coma (HCC) * DRUG ABUSE PANEL 10-20+ETHANOL URINE NO CONFIRM(Performed 06/27/2018) Performed for Chronic hepatitis C without hepatic coma (HCC) * KY LIVER ELASTOGRAPHY(Performed 06/24/2018) Performed for Chronic hepatitis C without hepatic coma (HCC) * HEPATITIS C RNA QUANTITATIVE(Performed 04/03/2018) Performed for Chronic hepatitis C without hepatic coma (HCC) * HEPATITIS C GENOTYPE(Performed 04/03/2018) Performed for Chronic hepatitis C without hepatic coma (HCC) * PT-INR [facility](Performed 04/03/2018) Performed for Chronic hepatitis C without hepatic coma (HCC) * COMPREHENSIVE METABOLIC PANEL(Performed 04/03/2018) Performed for Chronic hepatitis C without hepatic coma (HCC) * CBC W AUTO DIFFERENTIAL(Performed 04/03/2018) Performed for Chronic hepatitis C without hepatic coma (HCC) * XR SHOULDER RIGHT 2VW OR MORE(Performed 05/15/2016) Results * IR BIOPSY TRANSCATHETER (01/10/2019 9:00 AM AVIATION WARFARE SYSTEMS OPERATOR) Anatomical Region Laterality Modality Abdomen, Lung, Chest X-Ray Angio graphy 01/10/2019 9:33 AM AVIATION WARFARE SYSTEMS OPERATOR Impressions 01/10/2019 6:24 PM AVIATION WARFARE SYSTEMS OPERATOR Impression: Transjugular liver biopsy and pressure measurement as mentioned above. The wedged hepatic (portal) pressure is 14 mm of Hg with hepatic atrial pressure gradient of 9-10 mm of Hg. Note: The pathology results are pending during this dictation. I, Dr. Rey, performed/was present throughout the procedure and provided the moderate sedation service. Please see the nursing sedation flowsheet. This report was electronically signed by THANG REY M.D. on 01/10/2019 6:24 PM . Narrative 01/10/2019 6:24 PM AVIATION WARFARE SYSTEMS OPERATOR History: 53 yo female with a PMhx of chronic hepatitis and completed mavyret on 09/26/2018. Ultrasound of abdomen on 12/25/18 shows hepatic steatosis without discrete hepatic lesion or biliary dilation. Fibroscan suggestive of advanced cirrhosis. Patient presents to [facility] for transjugular liver biopsy and hepatic wedge pressures measurements. Operators: 1.Dr. Rey, Attending Physician Anesthesia: 1.Local anesthesia - 5 ml of 1 % lidocaine 2.Intravenous Conscious Sedation (Versed 3 mg and Fentanyl 150 mcg). Procedure: 1.Building Performance Consultant radiograph of the abdomen. 2.Ultrasound-guided access of right internal jugular vein. 3.Right hepatic venogram with pressure measurements. 4.Transcatheter biopsy of liver, under fluoroscopic guidance. Start time: 0809 Sedation start time: 0809 Sedation end-time: 0900 Fluoroscopy time: 9.4 minutes. Contrast used: 10 ml of Isovue 300. Procedure in detail: The procedure, risks and possible complications were explained to the patient in detail, and an informed consent was obtained. The patient was placed supine on the angiographic table. Patient received intravenous conscious sedation with Versed and Fentanyl. Patients vital signs were monitored by a qualified radiology nurse throughout the procedure. The right neck was prepped and draped in the usual sterile manner. Limited ultrasound of right internal jugular vein demonstrated patent and compressible internal jugular vein. A almaraz scale image was documented. After instillation with 1 % local lidocaine, a small skin incision was made in the right lower neck. Under real-time ultrasound guidance, the right internal jugular vein was accessed using a micro-puncture needle. The needle entry was documented. After series of exchanges a 10 Hong Konger vascular sheath was placed. Using a 5 Hong Konger MPA catheter, the right hepatic vein was catheterized and a venogram was obtained. The right hepatic venogram showed patent vein with brisk antegrade flow. The pressures were measured as follows Right atrium: 4-5 mm of Hg Right free hepatic vein: 11 mm of Hg Wedged hepatic pressure = portal pressure: 14 mm of Hg Hepatic venous pressure gradient: 3 mm of Hg. (wedged - free hepatic vein) Hepatic atrial pressure gradient: 9-10 mm of Hg (wedged - right atrial) A stiffer 0.035 wire was placed in the right hepatic vein and using a transjugular biopsy set, 3 core biopsy samples of the liver were obtained. Samples were given to pathology service. Post-biopsy right hepatic venogram was unremarkable. The sheath was removed and hemostasis was achieved with manual compression. A sterile dressing was applied, and the patient was transferred to the holding area in stable condition. The patient tolerated the procedure. There were no immediate complications associated with the procedure. Procedure Note Thang Rey MD - 01/10/2019 History: 53 yo female with a PMhx of chronic hepatitis and completed mavyret on 09/26/2018. Ultrasound of abdomen on 12/25/18 shows hepatic steatosis without discrete hepatic lesion or biliary dilation. Fibroscan suggestive of advanced cirrhosis. Patient presents to [facility] fortransjugular liver biopsy and hepatic wedge pressures measurements. Operators: 1.Dr. Rey, Attending Physician Anesthesia: 1.Local anesthesia - 5 ml of 1 % lidocaine 2.Intravenous Conscious Sedation (Versed 3 mg and Fentanyl 150 mcg). Procedure: 1.Building Performance Consultant radiograph of the abdomen. 2.Ultrasound-guided access of right internal jugular vein. 3.Right hepatic venogram with pressure measurements. 4.Transcatheter biopsy of liver, under fluoroscopic guidance. Start time: 808 Sedation start time: 808 Sedation end-time: 899 Fluoroscopy time: 9.4 minutes. Contrast used: 10 ml of Isovue 300. Procedure in detail: The procedure, risks and possible complications were explained to the patient in detail, and an informed consent was obtained. The patient was placed supine on the angiographic table. Patient received intravenous conscious sedation with Versed andFentanyl. Patients vital signs were monitored by a qualified radiology nurse throughout the procedure. The right neck was prepped and draped in the usual sterile manner.Limited ultrasound of right internal jugular vein demonstrated patent and compressible internal jugular vein. A almaraz scale image was documented. After instillation with 1 % local lidocaine, a small skin incision was made in the right lower neck. Under real-time ultrasound guidance, the right internal jugular vein was accessed using a micro-puncture needle. The needle entry was documented. After series of exchanges a 10 Hong Konger vascular sheath was placed. Using a 5 Hong Konger MPA catheter, the right hepatic vein was catheterizedand a venogram was obtained. The right hepatic venogram showed patent vein with brisk antegrade flow. The pressures were measured as follows Right atrium: 4-5 mm of Hg Right free hepatic vein: 11 mm of Hg Wedged hepatic pressure = portal pressure: 14 mm of Hg Hepatic venous pressure gradient: 3 mm of Hg. (wedged - free hepaticvein) Hepatic atrial pressure gradient: 9-10 mm of Hg (wedged - right atrial) A stiffer 0.035 wire was placed in the right hepatic vein and using a transjugular biopsy set, 3 core biopsy samples of the liver wereobtained. Samples were given to pathology service. Post-biopsy right hepatic venogram was unremarkable. The sheath was removed and hemostasis was achieved with manual compression. A sterile dressing was applied, and the patient was transferred to the holding area in stable condition. The patient tolerated the procedure. There were no immediatecomplications associated with the procedure. Impression: Transjugular liver biopsy and pressure measurement as mentioned above.The wedged hepatic (portal) pressure is 14 mm of Hg with hepatic atrial pressure gradient of 9-10 mm of Hg. Note: The pathology results are pending during this dictation. IDr. Rey, performed/was present throughout the procedure and provided the moderate sedation service. Please see the nursing sedationflowsheet. This report was electronically signed by THANG REY M.D. on 01/10/2019 6:24 PM . Luz Marina Spain RADIATION THERAPY TECHNICIAN-MOTOR VEHICLE REPRESENTATIVE IR ORDERABLE S * PATHOLOGY TISSUE (01/10/2019 8:37 AM AVIATION WARFARE SYSTEMS OPERATOR) Case Report Surgical Pathology Report Case: [id number] Authorizing Provider: Luz Marina Spain, Collected: 01/10/2019 08:37 AM RADIATION THERAPY TECHNICIAN-MOTOR VEHICLE REPRESENTATIVE Ordering Location: [facility] IVR Received: 01/10/2019 10:09 AM Pathologist: Corinne Fagan MD Specimen: Liver 01/14/2019 6:14 PM AVIATION WARFARE SYSTEMS OPERATOR [facility] Final Diagnosis Liver, biopsy (A): - Steatohepatitis - Portal chronic inflammation and fibrosis with ductular reaction - Bridging fibrosis, stage 3 01/14/2019 6:14 PM AVIATION WARFARE SYSTEMS OPERATOR [facility] Microscopic Description and Comment The liver biopsy has several histopathologic alterations. There is moderate portal inflammation with focal minimal interface activity, and portal tracts are expanded by prominent ductular reaction. There is also ~30% macrovesicular steatosis that is unevenly distributed across the lobules. There are mild lobular inflammatory infiltrates (<2 foci/20X) and frequent acidophil bodies. Rare non-classic ballooned hepatocytes are present. The trichrome stain highlights portal predominant fibrosis, with expanded portal tracts, periportal fibrosis and portal-portal bridging. Foci of possible portal-central bridging are also present. Several central veins without accompanying zone 3 perisinusoidal fibrosis are present. The reticulin stain also bridging. The PASd is negative for alpha-1 antitrypsin globules and highlights scattered Kupffer cells. The iron stain is negative. A CK7 stain highlights the ductular reaction, but no ductopenia or biliary metaplasia. The copper stain is negative as well, arguing against chronic cholestasis. The steatosis, inflammation, and rare nonclassic ballooned hepatocyte are suspicious for steatohepatitis. In the correct clinical setting, the PABLO score would be 3/8 (steatosis-1, inflammation-1, ballooning-1). However, much of the damage in the biopsy is portal based, somewhat confounding the fatty liver disease. The typical perisinusoidal or central-based fibrosis of steatohepatitis is not present and instead, there is prominent portal based fibrosis, more in keeping with chronic hepatitic injury. The history of HCV with sustained viral response is noted, which may account for the portal based fibrosis and even ductular reaction, but with very limited to absent interface activity. In terms of fatty liver disease, bridging fibrosis would be stage 3, though again, the fibrosis pattern is suggestive of residual chronic hepatitic injury. Bridging fibrosis would be stage 3 (Robson-Yogi) in considering chronic hepatitis as well. 01/14/2019 6:14 PM [facility] Clinical History The patient is a 53-year-old woman with history of HCV s/p treatment and SVR. The most recent fibroscan showed high likelihood of steatosis and advanced liver fibrosis. LFTs performed on December 2018 are within normal limits. 01/14/2019 6:14 PM [facility] Gross Description The requisition and specimen label(s) are identified with the patient name, Arnoldo Holden. Received in formalin, specimen A, liver bx consists of three cores of brown-bryant tissue each with a diameter of <0.1 cm ranging in length from 1.3 to 1.7 cm. The specimen is submitted in toto in cassette A1. ED/cml 01/14/2019 6:14 PM [facility] Disclaimer The performance characteristics of all immunohistochemical and indirect immunofluorescence stains (if any) cited in this report were determined by the Histopathology Laboratory of [facility]. Some of these tests were developed by our own laboratory and have not been cleared or approved by the US Food and Drug Administration. The FDA does not require this test to go through premarket FDA review. These tests are used for clinical purposes. They should not be regarded as investigational or for research. This laboratory is certified under the Clinical Laboratory Improvement Amendments (CLIA) as qualified to perform high complexity clinical laboratory testing. This case has been personally reviewed and interpreted by the attending (teaching) pathologist. 01/14/2019 6:14 PM [facility] Embedded Images 01/14/2019 6:14 PM [facility] Biopsy, Needle ENTIRE LIVER / Unknown 01/10/2019 8:37 AM AVIATION WARFARE SYSTEMS OPERATOR 01/10/2019 10:09 AM AVIATION WARFARE SYSTEMS OPERATOR Luz Marina Spain RADIATION THERAPY TECHNICIAN-MOTOR VEHICLE REPRESENTATIVE LAB - PATHOL OGY/CYTOLOGY ORDERABLES Performing Organization Address [facility]/ZIP Co de Phone Number [facility] [address] [phone] * PT-INR [facility] (01/10/2019 6:56 AM AVIATION WARFARE SYSTEMS OPERATOR) Only the most recent of2 resultswithin the time period is included. Pathologist [facility] PT 13.8 12.1 - 14.8 Seconds 01/10/2019 7:25 AM [facility] INR 1.1 See Comment 01/10/2019 7:25 AM [facility] Comment: The suggested therapeutic range for standard coumadin (warfarin) therapy is an INR of 2.0-3.0. For high-risk patients (Mechanical Mitral Valve Prosthesis, etc.), the suggested prophylactic therapeutic range is an INR of 2.5-3.5. Blood BLOOD SPECIMEN / Unknown Venipuncture / Unknown 01/10/2019 6:56 AM AVIATION WARFARE SYSTEMS OPERATOR 01/10/2019 7:03 AM AVIATION WARFARE SYSTEMS OPERATOR Thang Rey MD LAB - COAGULATION ORDERABLES Performing Organization Address City/[facility] Co de Phone Number [facility] [address] [place] [address] * HEPATITIS C RNA QUANTITATIVE (12/25/2018 11:46 AM AVIATION WARFARE SYSTEMS OPERATOR) Only the most recent of3 resultswithin the time period is included. Pathologist [facility] Hepatitis C RNA PCR, Interp Not Detected Not Detected 12/28/2018 1:31 PM AVIATION WARFARE SYSTEMS OPERATOR [facility] Blood BLOOD SPECIMEN / Unknown Lab Venipuncture / Unknown 12/25/2018 11:46 AM AVIATION WARFARE SYSTEMS OPERATOR 12/25/2018 12:43 PM AVIATION WARFARE SYSTEMS OPERATOR Narrative [facility] - 12/28/2018 1:31 PM AVIATION WARFARE SYSTEMS OPERATOR The Hepatitis C viral (HCV) RNA analysis utilized a serum sample, real-time reverse highway engineer PCR, and is reported as Not Detected, [...] the isolation of HCV RNA with reverse highway engineer of genomic HCV RNA followed by real-time PCR in the presence of an unrelated RNA internal control. The internal control ensures that RNA is isolated, and that no general significant inhibitors of the RT-PCR process are present. The analysis was performed using a U.S. FDA approved test methodology ([employer] Real Time HCV). Luz Marina Spain RADIATION THERAPY TECHNICIAN-MOTOR VEHICLE REPRESENTATIVE LAB - CHEMIS TRY ORDERABLES Performing Organization Address City/State/[facility] Co de Phone Number [facility] [address] [phone] * (ABNORMAL) CBC WITH DIFFERENTIAL (12/25/2018 11:46 AM AVIATION WARFARE SYSTEMS OPERATOR) Only the most recent of3 resultswithin the time period is included. WBC 8.4 3.5 - 10.5 10 3/uL 12/25/2018 12:50 PM [facility] RBC 5.21(H) 3.90 - 5.00 10 6/uL 12/25/2018 12:50 PM [facility] Hemoglobin 16.2(H) 12.0 - 15.5 g/dL 12/25/2018 12:50 PM [facility] Hematocrit 47.5(H) 35.0 - 45.0 % 12/25/2018 12:50 PM [facility] MCV 91.2 81.0 - 97.0 fL 12/25/2018 12:50 PM [facility] MCH 31.1 28.0 - 34.0 pg 12/25/2018 12:50 PM [facility] MCHC 34.1 32.0 - 36.0 g/dL 12/25/2018 12:50 PM [facility] Platelet Count 192 150 - 400 10 3/uL 12/25/2018 12:50 PM [facility] RDW-SD 39.8 36.0 - 50.0 fL 12/25/2018 12:50 PM [facility] RDW-CV 11.9 11.2 - 14.8 % 12/25/2018 12:50 PM [facility] MPV 10.1 9.3 - 12.8 fL 12/25/2018 12:50 PM [facility] nRBC Absolute 0.00 0 10 3/uL 12/25/2018 12:50 PM [facility] nRBC Auto 0.0 0 /100 WBC 12/25/2018 12:50 PM [facility] Neutrophils % 47.9 35.0 - 70.0 % 12/25/2018 12:50 PM [facility] Lymphocytes % 43.5 19.7 - 55.1 % 12/25/2018 12:50 PM [facility] Monocytes % 5.7 3.0 - 15.0 % 12/25/2018 12:50 PM [facility] Eosinophils % 2.0 0.0 - 6.0 % 12/25/2018 12:50 PM [facility] Basophil % 0.7 0.0 - 1.5 % 12/25/2018 12:50 PM [facility] Neutrophils Absolute 4.0 1.6 - 7.0 10 3/uL 12/25/2018 12:50 PM [facility] Lymphocyte Absolute 3.7(H) 0.8 - 2.9 10 3/uL 12/25/2018 12:50 PM [facility] Monocytes Absolute 0.48 0.14 - 0.66 10 3/uL 12/25/2018 12:50 PM [facility] Eosinophils Absolute 0.17 0.00 - 0.45 10 3/uL 12/25/2018 12:50 PM [facility] Basophils Absolute 0.06 0.00 - 0.06 10 3/uL 12/25/2018 12:50 PM [facility] Immature Granulocytes % 0.2 0.0 - 1.0 % 12/25/2018 12:50 PM [facility] Blood BLOOD SPECIMEN / Unknown Lab Venipuncture / Unknown 12/25/2018 11:46 AM AVIATION WARFARE SYSTEMS OPERATOR 12/25/2018 12:43 PM AVIATION WARFARE SYSTEMS OPERATOR Luz Marina Spain RADIATION THERAPY TECHNICIAN-MOTOR VEHICLE REPRESENTATIVE LAB - HEMATO LOGY ORDERABLES [facility] [address] [phone] * (ABNORMAL) COMPREHENSIVE METABOLIC PANEL (12/25/2018 11:46 AM AVIATION WARFARE SYSTEMS OPERATOR) Only the most recent of3 resultswithin the time period is included. BUN 11 7 - 26 mg/dL 12/25/2018 1:19 PM [facility] Creatinine 0.9 0.6 - 1.2 mg/dL 12/25/2018 1:19 PM [facility] Sodium 142 136 - 145 mmol/L 12/25/2018 1:19 PM [facility] Potassium 4.2 3.5 - 4.5 mmol/L 12/25/2018 1:19 PM [facility] Chloride 105 98 - 107 mmol/L 12/25/2018 1:19 PM [facility] CO2 25 22 - 29 mmol/L 12/25/2018 1:19 PM [facility] Glucose 105 70 - 115 mg/dL 12/25/2018 1:19 PM [facility] Calcium 10.3(H) 8.4 - 10.2 mg/dL 12/25/2018 1:19 PM [facility] Protein Total 7.8 6.0 - 8.3 g/dL 12/25/2018 1:19 PM [facility] Albumin 4.3 3.4 - 5.0 g/dL 12/25/2018 1:19 PM [facility] Bilirubin Total 0.4 0.2 - 1.2 mg/dL 12/25/2018 1:19 PM [facility] Alkaline Phosphatase 62 40 - 150 Units/L 12/25/2018 1:19 PM [facility] ALT 20 0 - 55 Units/L 12/25/2018 1:19 PM [facility] AST 18 5 - 34 Units/L 12/25/2018 1:19 PM [facility] Anion Gap 16 8 - 18 12/25/2018 1:19 PM [facility] BUN/Creatinine Ratio 12 7 - 23 12/25/2018 1:19 PM [facility] Osmolality Calculated 294 270 - 300 mOsm/kg 12/25/2018 1:19 PM [facility] Albumin/Globulin Ratio 1.2 1.1 - 2.3 12/25/2018 1:19 PM [facility] eGFR >60 >60 mL/min/1.7 3 m2 12/25/2018 1:19 PM [facility] Blood BLOOD SPECIMEN / Unknown Lab Venipuncture / Unknown 12/25/2018 11:46 AM AVIATION WARFARE SYSTEMS OPERATOR 12/25/2018 12:43 PM AVIATION WARFARE SYSTEMS OPERATOR Luz Marina Jensen Grabiel RADIATION THERAPY TECHNICIAN-MOTOR VEHICLE REPRESENTATIVE LAB - CHEMIS TRY ORDERABLES [facility] [address] [place] [address] * US ABDOMEN LIMITED (12/25/2018 11:12 AM AVIATION WARFARE SYSTEMS OPERATOR) Only the most recent of2 resultswithin the time period is included. Anatomical Region Laterality Modality Abdomen Ultrasound 12/25/2018 11:1 5 AM AVIATION WARFARE SYSTEMS OPERATOR Impressions 12/25/2018 11:42 AM AVIATION WARFARE SYSTEMS OPERATOR IMPRESSION: 1. Hepatic steatosis. No discrete hepatic lesion or biliary dilation. Patent hepatic vasculature. Report dictated by Bayron Phillips DO (sales and marketing vice president). This report was approved by Bayron Phillips on 12/25/2018 11:20 AM . IDr. Jesica M.D. have personally reviewed and interpreted this examination/study. This report was electronically signed by Jesica NGUYEN M.D. on 12/25/2018 11:42 AM . Narrative 12/25/2018 11:42 AM AVIATION WARFARE SYSTEMS OPERATOR EXAM: Limited abdominal ultrasound HISTORY: HCC SURVEILLANCE, CIRRHOSIS FINDINGS: Comparison is made with limited abdominal ultrasound dated 08/27/2018. The liver has normal echotexture with a mildly nodular surface contour. There is increase in hepatic echogenicity, consistent with hepatic steatosis. No discrete hepatic lesion or intrahepatic biliary dilation is seen. Color Doppler evaluation demonstrates patency of the hepatic veins and main portal vein. No gallstones, gallbladder wall thickening, or pericholecystic fluid is seen. Sonographic Ruose's sign is negative. The proximal common bile duct is nondilated, measuring 6-7 mm. The right kidney measures 11.6 x 5.1 x 4.6 cm. Limited views reveal no evidence of hydronephrosis. The visible pancreas shows normal echogenicity. The spleen measures 12.3 cm in length, which is within normal limits. No ascites is seen. Procedure Note Sheron Nguyen MD - 12/25/2018 EXAM: Limited abdominal ultrasound HISTORY: HCC SURVEILLANCE, CIRRHOSIS FINDINGS: Comparison is made with limited abdominal ultrasound dated 08/27/2018. The liver has normal echotexture with a mildly nodular surface contour. There is increase in hepatic echogenicity, consistent with hepatic steatosis. No discrete hepatic lesion or intrahepatic biliary dilationis seen. Color Doppler evaluation demonstrates patency of the hepatic veins and main portal vein. No gallstones, gallbladder wall thickening, or pericholecystic fluid is seen. Sonographic Rouse's sign is negative. The proximal common bileduct is nondilated, measuring 6-7 mm. The right kidney measures 11.6 x 5.1 x 4.6 cm. Limited views reveal no evidence of hydronephrosis. The visible pancreas shows normal echogenicity. The spleen measures 12.3 cm in length, which is within normal limits. No ascites is seen. IMPRESSION: 1. Hepatic steatosis. No discrete hepatic lesion or biliary dilation. Patent hepatic vasculature. Report dictated by Bayron Phillips DO (sales and marketing vice president). This report was approved by Bayron Phillips on 12/25/2018 11:[address] Jesica Ceballos M.D. have personally reviewed and interpretedthis examination/study. This report was electronically signed by Jesica NGUYEN M.D. on 12/25/2018 11:42 AM . Lu zMarina Spain RADIATION THERAPY TECHNICIAN-MOTOR VEHICLE REPRESENTATIVE US ORDERABLE S * DRUG ABUSE PANEL 10-20+ETHANOL URINE NO CONFIRM (06/27/2018 4:08 PM CDT) Please Note See Below [facility] Comment: * These results are for medical treatment only. * * Analysis was performed as non-forensic testing. * Amphetamines Screen Urine 1000 NEGATIVE [facility] Barbiturates NEGATIVE [facility] Benzodiazepines NEGATIVE [facility] Cocaine Metabolites NEGATIVE [facility] Marijuana Metabolites Urine NEGATIVE [facility] Methadone NEGATIVE [facility] Methaqualone NEGATIVE [facility] Opiates NEGATIVE [facility] Phencyclidine NEGATIVE [facility] Propoxyphene NEGATIVE [facility] Alcohol Ethyl Urine NEGATIVE [facility] See Note [facility] Comment: THE SUBMITTED URINE SPECIMEN WAS TESTED AT THE LISTED CUTOFFS. DRUG CLASS INITIAL TEST LEVEL AMPHETAMINES 1000 ng/mL BARBITURATES 300 ng/mL BENZODIAZEPINES 300 ng/mL COCAINE METABOLITES 300 ng/mL MARIJUANA METABOLITES 20 ng/mL METHADONE 300 ng/mL METHAQUALONE 300 ng/mL OPIATES 300 ng/mL PHENCYCLIDINE 25 ng/mL PROPOXYPHENE 300 ng/mL ETHANOL .02 g/dL PLEASE READ THIS IMPORTANT MESSAGE: THIS DRUG SCREEN IS FOR MEDICAL USE ONLY. THE RESULTS ARE PRESUMPTIVE; BASED ONLY ON SCREENING METHODS, AND THEY HAVE NOT BEEN CONFIRMED BY A SECOND INDEPENDENT CHEMICAL METHOD. THESE RESULTS SHOULD BE USED ONLY BY PHYSICIANS TO RENDER DIAGNOSIS OR TREATMENT, OR TO MONITOR PROGRESS OF MEDICAL CONDITIONS. Test Performed at: [facility] [address] [place] [address] GRANT LINDO DO,MPH Urine URINE / Unknown 06/27/2018 4 :08 PM CDT 06/27/2018 4:09 PM CDT Luz Marina Spain RADIATION THERAPY TECHNICIAN-MOTOR VEHICLE REPRESENTATIVE LAB - URINE CHEMISTRY ORDERABLES [facility] [address] [place] [address] * [place] LIVER ELASTOGRAPHY (06/24/2018 2:29 PM CDT) Narrative Aroldo Hazel MD - 06/24/2018 2:29 PM CDT Aroldo Hazel MD 06/24/2018 2:29 PM Diagnosis: Hepatitis C RN verified patient not , no implanted devices and NPO for prior 3 hours. Vital signs taken, procedure explained and consent signed. Date of Exam: 06/18/2018 Liver Stiffness: (E, kPa) median: 19.0 IQR (interquartile range): 1.7 IQR/Median% (ideally < 30%): 9% CAP (controlled attenuation parameter): 282 Technical Difficulty: None Ordering Provider: Luz Marina Spain NP Phone Fax Fibroscan interpretation: I have personally reviewed the Fibroscan report and associated tracings. The calculated liver stiffness (E, kPa) indicates that: The probability of advanced liver fibrosis is: high. The loss of ultrasound signal, (controlled attenuation parameter, CAP [dB/m]), indicates that the probability of hepatic steatosis is: high. Aroldo Hazel MD The following criteria are used to indicate the probability of advanced (stage 3-4) fibrosis: < 7.0 kPa: low 7.0-8.9 kPa: low to moderate 9.0-14.9 kPa: moderate 15-20 kPa: high > 20 kPa: very high Liver stiffness > 20 kPa is also associated with a high probability of complications of portal hypertension including varices and ascites. Liver stiffness > 50 kPa is associated with a high risk of variceal bleeding. Note: Liver stiffness is increased by factors other than fibrosis including passive congestion, infiltrative processes, active alcoholism, biliary obstruction and marked inflammation. The interpretation of the Fibroscan result provided above may not have taken such factors into account. Disease etiology also influences Fibroscan cutoff values for fibrosis stages and the following cutoffs have been proposed (Shayla et al, Clin Gastro Hepatol 2015; 13:27-36): Cutoffs for Stage 3 and Stage 4 fibrosis respectively: Hepatitis B: >9 and >11.7 kPa Hepatitis C: >9.5 and >12.5 kPa HCV-HIV: >11 and >14 kPa Cholestatic liver diseases: >10 and >17.9 kPa NAFLD/ROBERTS: >10 and >14 kPa CAP estimates of steatosis: normal <200 dB/m maybe present 200 to 250 dB/m moderate 250-300 dB/m substantial > 300 dB/m (Note that Fibroscan is not a quantitative measure of liver fat and the risk of NAFLD progression is unrelated to the degree of steatosis.) These criteria are estimates and may change as additional supporting data becomes available. http://www.[facility].com/xkx-uylaizmn-bpknsbjrju Luz Marina Spain RADIATION THERAPY TECHNICIAN-MOTOR VEHICLE REPRESENTATIVE PROCEDURE/NE NOR SURGICAL ORDERABLES * HEPATITIS C GENOTYPE (04/03/2018 3:32 PM CDT) HCV Genotype HCV Genotype 1a Not Detected 04/17/2018 6:28 PM CDT [facility] HCV Genotype Interpretation 04/17/2018 6:28 PM CDT [facility] Comment:The Hepatitis C kiel type RT-PCR determination was performed on a serum sample. Genotype identification was successful. Blood BLOOD SPECIMEN / Unknown Lab Venipuncture / Unknown 04/03/2018 3:32 PM CDT 04/03/2018 3:57 PM CDT Narrative [facility] - 04/17/2018 6:28 PM CDT The [facility] Real Time HCV Genotype II is intended for use as an aid in the management of HCV-infected individuals and in guiding the selection of therapeutic treatment indicated for genotypes 1, 1a, 1b, and 2-5. The assay is intended for use on patients who are chronically infected with HCV, are being considered for antiviral treatment, and are positive for HCV RNA. The analytical sensitivity of the assay is 500 IU/mL. While the genotype assay is qualitative, testing cannot be reliably performed on samples with less than 500 IU/mL HCV. The detection of HCV RNA in serum is based on the isolation of HCV RNA with reverse highway engineer of genomic HCV RNA followed by real-time PCR in the presence of an unrelated RNA internal control. The internal control ensures that RNA is isolated, and that no general significant inhibitors of the RT-PCR process are present. Genotype specific probes allow differentiation of genotype. The analysis was performed using an US FDA approved test methodology (A[employer] Real Time HCV Genotype II). Luz Marina Spain RADIATION THERAPY TECHNICIAN-MOTOR VEHICLE REPRESENTATIVE LAB - CHEMIS TRY ORDERABLES [facility] [address] [phone] * XR SHOULDER RIGHT 2VW OR MORE (05/15/2016 10:11 AM CDT) Anatomical Region Laterality Modality Upper Extremity Other Impressions 05/15/2016 12:35 PM CDT IMPRESSION: No acute fracture or dislocation identified. Dictated by Ugo Moreno MD (sales and marketing vice president). Dr. GAIL Ceballos M.D. have personally reviewed and interpreted this examination/study. This report was electronically signed by GAIL CHILDRESS M.D. on 05/15/2016 12:35 PM . Narrative 05/15/2016 12:35 PM CDT EXAMINATION: XR SHOULDER RIGHT 2 VW MIN HISTORY: Pain s/p lifting furniture COMPARISON: No prior study is available for comparison. FINDINGS: The osseous structures are intact without acute fracture. The glenohumeral and acromioclavicular joints are in anatomic alignment. Minor osteophytosis is present at the inferior aspect of the humeral head. Bone density and texture are normal. Procedure Note Gail Childress MD - 02/17/2018 EXAMINATION: XR SHOULDER RIGHT 2 VW MIN HISTORY: Pain s/p lifting furniture COMPARISON: No prior study is available for comparison. FINDINGS: The osseous structures are intact without acute fracture. The glenohumeraland acromioclavicular joints are in anatomic alignment. Minorosteophytosis is present at the inferior aspect of the humeral head. Bonedensity and texture are normal. IMPRESSION IMPRESSION: No acute fracture or dislocation identified. Dictated by Ugo Moreno MD (sales and marketing vice president). Dr. GAIL Ceballos M.D. have personally reviewed and interpreted thisexamination/study. This report was electronically signed by GAIL CHILDRESS M.D. on 05/15/201612:35 PM . Aidan Kaufman MD DIAGNOSTIC IMAGING O RDERABLES Care Teams Gerentological Physiotherapist Relationship Specialty Start Date End Date Elias Macias MD [address] [place] [address] PCP - General 03/30/18
--- OUTSIDE RECORDS SUMMARY | 2025-01-13 14:02 | XMS_ITS | Referral Summary ---
Author Organization [facility] Address [address] [place] [address] Care Team Providers Care Dredge Runner Name Role Phone Elias Macias MD Primary Care Provider [phone] Source Comments [facility],non-owned Affiliates and Associated Physician Practices is amultiple site organization consisting of ambulatory clinics and hospital sitesin [place], [place], [place] and [place]. This disclosure is being madepursuant to the Care Everywhere program and may not contain all information available regarding this patient. Last updated 18.[facility] Allergies No known active allergies Medications * [...] 03/11/2019 3:00 PM CDT Plan of Treatment Not on file Goals Goal Patient Goal Type Associated Problems Recent Progress Patient-Stated? Author Medication Management General On track( 019 3:48 PM CDT) Radha Vences, RN Note: Expected end date: ongoing Interventions: Take all medications as prescribed Complete Hepatitis C therapy as prescribed Let your doctor know right away about any changes in your medications Make sure to request a refill of your medication at least one week prior to your last dose Procedures Procedure Name Priority Date/Time Associated Diagnosis Comments COMPREHENSIVE METABOLIC PANEL Routine 12/25/2018 11:46 AM RADIOISOTOPE PRODUCTION OPERATOR Chronic hepatitis C without hepatic coma (HCC) HEPATITIS C RNA QUANTITATIVE Routine 12/25/2018 11:46 AM RADIOISOTOPE PRODUCTION OPERATOR Chronic hepatitis C without hepatic coma (HCC) from Last 3 Months or Most Recently Relevant to Health Maintenance Results * HEPATITIS C RNA QUANTITATIVE (12/25/2018 11:46 AM RADIOISOTOPE PRODUCTION OPERATOR) Hepatitis C RNA PCR, Interp Not Detected Not Detected 12/28/2018 1:31 PM [facility] Blood BLOOD SPECIMEN / Unknown Lab Venipuncture / Unknown 12/25/2018 11:46 AM RADIOISOTOPE PRODUCTION OPERATOR 12/25/2018 12:43 PM RADIOISOTOPE PRODUCTION OPERATOR Narrative [facility] - 12/28/2018 1:31 PM RADIOISOTOPE PRODUCTION OPERATOR The Hepatitis C viral (HCV) RNA analysis utilized a serum sample, real-time reverse statement processor PCR, and is reported as Not Detected, [...] the isolation of HCV RNA with reverse statement processor of genomic HCV RNA followed by real-time PCR in the presence of an unrelated RNA internal control. The internal control ensures that RNA is isolated, and that no general significant inhibitors of the RT-PCR process are present. The analysis was performed using a U.S. FDA approved test methodology ([facility] Real Time HCV). Luz Marina Spain APRN-TESTING DIRECTOR LAB - CHEMIS TRY ORDERABLES [facility] [address] [phone] * (ABNORMAL) COMPREHENSIVE METABOLIC PANEL (12/25/2018 11:46 AM RADIOISOTOPE PRODUCTION OPERATOR) BUN 11 7 - 26 mg/dL 12/25/2018 1:19 PM [facility] Creatinine 0.9 0.6 - 1.2 mg/dL 12/25/2018 1:19 PM [facility] Sodium 142 136 - 145 mmol/L 12/25/2018 1:19 PM [facility] Potassium 4.2 3.5 - 4.5 mmol/L 12/25/2018 1:19 PM [facility] Chloride 105 98 - 107 mmol/L 12/25/2018 1:19 PM [facility] CO2 25 22 - 29 mmol/L 12/25/2018 1:19 PM [facility] Glucose 105 70 - 115 mg/dL 12/25/2018 1:19 PM [facility] Calcium 10.3(H) 8.4 - 10.2 mg/dL 12/25/2018 1:19 PM [facility] Protein Total 7.8 6.0 - 8.3 g/dL 12/25/2018 1:19 PM [facility] Albumin 4.3 3.4 - 5.0 g/dL 12/25/2018 1:19 PM [facility] Bilirubin Total 0.4 0.2 - 1.2 mg/dL 12/25/2018 1:19 PM [facility] Alkaline Phosphatase 62 40 - 150 Units/L 12/25/2018 1:19 PM [facility] ALT 20 0 - 55 Units/L 12/25/2018 1:19 PM [facility] AST 18 5 - 34 Units/L 12/25/2018 1:19 PM [facility] Anion Gap 16 8 - 18 12/25/2018 1:19 PM [facility] BUN/Creatinine Ratio 12 7 - 23 12/25/2018 1:19 PM [facility] Osmolality Calculated 294 270 - 300 mOsm/kg 12/25/2018 1:19 PM [facility] Albumin/Globulin Ratio 1.2 1.1 - 2.3 12/25/2018 1:19 PM [facility] eGFR >60 >60 mL/min/1.7 3 m2 12/25/2018 1:19 PM [facility] Blood BLOOD SPECIMEN / Unknown Lab Venipuncture / Unknown 12/25/2018 11:46 AM RADIOISOTOPE PRODUCTION OPERATOR 12/25/2018 12:43 PM RADIOISOTOPE PRODUCTION OPERATOR Luz Marina Spain FELT FINISHING SUPERVISOR-TESTING DIRECTOR LAB - CHEMIS TRY ORDERABLES [address] [phone] from Last 3 Months or Most Recently Relevant to Health Maintenance Care Teams Dredge Runner Relationship Specialty Start Date End Date Elias Macias MD [address] [place] [address] PCP - General 03/30/18
[2025-01-13 14:10] LABS: Hepatitis C Virus Antibody Reactive (Negative)
[2025-01-15 13:33] LABS: Hepatitis C RNA, Quant PCR <15 NOT DETECTED IU/mL (NOT DETECTED)
== END 2025-01-13 12:24 | disposition home or self-care (01) ==
PROVIDERS: PCP Registered Nurse; Visit Provider Registered Nurse
DX: R73.01 Impaired fasting glucose (principal); K74.60 Unspecified cirrhosis of liver; Z11.59 Encounter for screening for other viral diseases
CPT/HCPCS: 36415; 80053; 83036; 86803; 87522

== ENCOUNTER 2025-02-14 11:33 | Outpatient (CLI) | payer OTHER, SELFPAY ==
[2025-02-14 11:53] LABS: Hematocrit 42.7 % (37.0-47.0); Hemoglobin 14.9 g/dL (12.0-15.0); Mean Corpuscular HGB Conc 34.9 g/dl (32-36); Mean Corpuscular Hemoglobin 31.9 pg (26-34); Mean Corpuscular Volume 91.4 fl (80-100); Mean Platelet Volume 9.6 fl (7.4-10.4); Platelet Count Result 167 k/mm3 (150-375); Red Blood Count 4.67 M/mm3 (4.2-5.4); Red Cell Distribution Width 12.2 % (11.5-14.5); White Blood Count 6.9 K/mm3 (4.5-10.0)
[2025-02-14 12:03] LABS: INR 0.9; Prothrombin Time 13.1 Seconds (11.1-14.7)
--- OUTSIDE RECORDS SUMMARY | 2025-02-14 12:28 | XMS_ITS | Clinical Summary ---
Author Organization [facility] Address [address] [place] [address] Care Team Providers Care Electrical Engineering Draftsperson Name Role Phone Elias Macias MD Primary Care Provider Source Comments [facility],non-owned Affiliates and Associated Physician Practices is amultiple site organization consisting of ambulatory clinics and hospital sitesin [place], [place], [place] and [place]. This disclosure is being madepursuant to the Care Everywhere program and may not contain all information available regarding this patient. Last updated 18.[facility] Allergies No known active allergies Medications * [...] 02/08/1980 DTAP/TDAP/TD VACCINES (1 - Tdap) 02/08/1984 PNEUMOCOCCAL VACCINE (1 of 2 - PCV) 02/08/1984 PAP with HPV 1995 PNEUMOCOCCAL VACCINE 50+ (1 of 1 - PCV) 2015 ZOSTER VACCINE (1 of 2) 2015 SCREENING FOR DIABETES 12/25/2021 9, 08/13/2018, 04/03/2018 COVID-19 VACCINE (1 - 2023- season) 2024 INFLUENZA VACCINE (#1) 2024 03/26/2015 DEPRESSION SCREENING 11/20/2024 Respiratory Syncytial Virus (RSV) Vaccine Pt: or over 60 yrs (1 - 1-dose 75+ series) 02/08/2040 HEPATITIS C SCREENING Completed 03/11/2019 , 01/01/2019, 12/25/2018, Additional history exists HEPATITIS B VACCINE Aged Out No longe r eligible based on patient's age to complete this topic HIB VACCINE Aged Out No longer eligi ble based on patient's age to complete this topic HPV VACCINE Aged Out No longer eligi ble based on patient's age to complete this topic MENINGOCOCCAL (Group B) VACCINE SHARED DECISION-MAKING Aged Out No longer eligible based on patient's age to complete this topic MENINGOCOCCAL GROUPS A/C/Y/W VACCINE Aged Out No longer eligible based [...] COMPREHENSIVE METABOLIC PANEL Routine 12/25/2018 11:46 AM ARCHEOLOGY PROFESSOR Chronic hepatitis C without hepatic coma HEPATITIS C RNA QUANTITATIVE Routine 12/25/2018 11:46 AM ARCHEOLOGY PROFESSOR Chronic hepatitis C without hepatic coma from Last 3 Months or Most Recently Relevant to Health Maintenance Results * HEPATITIS C RNA QUANTITATIVE (12/25/2018 11:46 AM ARCHEOLOGY PROFESSOR) Hepatitis C RNA PCR, Interp Not Detected Not Detected 12/28/2018 1:[address] [facility] Blood BLOOD SPECIMEN / Unknown Lab Venipuncture / Unknown 12/25/2018 11:46 AM ARCHEOLOGY PROFESSOR 12/25/2018 12:43 PM [facility] Narrative [facility] - 12/28/2018 1:31 PM ARCHEOLOGY PROFESSOR The Hepatitis C viral (HCV) RNA analysis utilized a serum sample, real-time reverse speaker wirer PCR, and is reported as Not Detected, [...] the isolation of HCV RNA with reverse speaker wirer of genomic HCV RNA followed by real-time PCR in the presence of an unrelated RNA internal control. The internal control ensures that RNA is isolated, and that no general significant inhibitors of the RT-PCR process are present. The analysis was performed using a U.S. FDA approved test methodology ([employer] Real Time HCV). Luz Marina Spain DOCTOR PODIATRIC MEDICINE-PURSE MAKER LAB - CHEMIS TRY ORDERABLES [facility] [address] [id number] [phone] * (ABNORMAL) COMPREHENSIVE METABOLIC PANEL (12/25/2018 11:46 AM ARCHEOLOGY PROFESSOR) BUN 11 7 - 26 mg/dL 12/25/2018 1:19 PM [facility] Creatinine 0.9 0.6 - 1.2 mg/dL 12/25/2018 1:19 PM [facility] Sodium 142 136 - 145 mmol/L 12/25/2018 1:19 PM [facility] Potassium 4.2 3.5 - 4.5 mmol/L 12/25/2018 1:19 PM [facility] Chloride 105 98 - 107 mmol/L 12/25/2018 1:19 PM [facility] CO2 25 22 - 29 mmol/L 12/25/2018 1:19 PM [facility] Glucose 105 70 - 115 mg/dL 12/25/2018 1:19 PM [facility] Calcium 10.3(H) 8.4 - 10.2 mg/dL 12/25/2018 1:19 PM [facility] Protein Total 7.8 6.0 - 8.3 g/dL 12/25/2018 1:19 PM [facility] Albumin 4.3 3.4 - 5.0 g/dL 12/25/2018 1:19 PM [facility] Bilirubin Total 0.4 0.2 - 1.2 mg/dL 12/25/2018 1:19 PM ARCHEOLOGY PROFESSOR [facility] Alkaline Phosphatase 62 40 - 150 Units/L 12/25/2018 1:19 PM [facility] ALT 20 0 - 55 Units/L 12/25/2018 1:19 PM [facility] AST 18 5 - 34 Units/L 12/25/2018 1:19 PM [facility] Anion Gap 16 8 - 18 12/25/2018 1:19 PM [facility] BUN/Creatinine Ratio 12 7 - 23 12/25/2018 1:19 PM [facility] Osmolality Calculated 294 270 - 300 mOsm/kg 12/25/2018 1:19 PM [facility] Albumin/Globulin Ratio 1.2 1.1 - 2.3 12/25/2018 1:19 PM [facility] eGFR >60 >60 mL/min/1.7 3 m2 12/25/2018 1:19 PM [facility] Blood BLOOD SPECIMEN / Unknown Lab Venipuncture / Unknown 12/25/2018 11:46 AM ARCHEOLOGY PROFESSOR 12/25/2018 12:43 PM ARCHEOLOGY PROFESSOR Luz Marina Spain DOCTOR PODIATRIC MEDICINE-PURSE MAKER LAB - CHEMIS TRY ORDERABLES Performing Organization Address [facility]/State/[facility] Co de Phone Number [facility] [address] [phone] from Last 3 Months or Most Recently Relevant to Health Maintenance Care Teams Electrical Engineering Draftsperson Relationship Specialty Start Date End Date Elias Macias MD [address] [place] [address] PCP - General 03/30/18
[2025-02-17 06:54] LABS: Alpha Fetoprotein Tumor Marker 4.2 ng/mL
== END 2025-02-14 11:34 | disposition home or self-care (01) ==
LOC: ANHLAB 11:35
PROVIDERS: PCP Family Medicine; Visit Provider Nurse Practitioner
DX: K74.60 Unspecified cirrhosis of liver (principal); Z86.19 Personal history of other infectious and parasitic diseases
CPT/HCPCS: 36415; 82105; 85027; 85610

== ENCOUNTER 2025-03-06 07:09 | Outpatient (CLI) | payer OTHER, SELFPAY ==
--- NOTE | ~2025-03-06 | US_ITS ---
Limited Abdominal Sonogram: Real-time sonographic imaging of the right upper quadrant was performed. Clinical History: Cirrhosis Findings: The liver appears echogenic, with no evidence of mass lesion or bile duct dilatation. Live r measures 19.2 cm in length. Main portal vein demonstrates normal direction of flow. The gallbladder is well distended, and appears normal with no evidence of gallstone or wall thickening. The common b ile duct measures 7 mm. The visualized pancreas, aorta, and IVC are unremarkable. Impression: Diffuse fatty infiltration of liver, with associated hepatomegaly. Reviewed, dictated and finalized at location . Impression: Diffuse fatty infiltration of liver, with associated hepatomegaly.
--- OUTSIDE RECORDS SUMMARY | 2025-03-06 07:13 | XMS_ITS | Clinical Summary ---
Author Organization [facility] Address [address] [place] [address] Care Team Providers Care Scheduling Manager Name Role Phone Elias Macias MD Primary Care Provider Source Comments [facility],non-owned Affiliates and Associated Physician Practices is amultiple site organization consisting of ambulatory clinics and hospital sitesin [place], [place], [place] and [place]. This disclosure is being madepursuant to the Care Everywhere program and may not contain all information available regarding this patient. Last updated 18.[facility] Allergies No known active allergies Medications * Be aware that medications may not be up to date on this document. Alwaysverify current medications with the patient. traZODone (DESYREL) 100 MG tablet TK 1 T PO QHS PRN 3 03/11/2018 Active DULoxetine (CYMBALTA) 60 MG capsule Take 60 [...] oz pur e alcohol) 2-3 times/per year Comments No Sex and Gender Information Value Date Recorded Sex Assigned at Not on file Legal Sex Female 5:23 PM MANAGEMENT SME Gender Identity Not on file Sexual Orientation [...] 02/08/1980 DTAP/TDAP/TD VACCINES (1 - Tdap) 02/08/1984 PAP with HPV 1995 PNEUMOCOCCAL VACCINE 50+ (1 of 1 - PCV) 2015 ZOSTER VACCINE (1 of 2) 2015 SCREENING FOR DIABETES 12/25/2021 9, 08/13/2018, 04/03/2018 COVID-19 VACCINE (1 - 2023- season) 2024 DEPRESSION SCREENING 11/20/2024 INFLUENZA VACCINE (Season Ended) 2025 03/26/2015 Respiratory Syncytial Virus (RSV) Vaccine Pt: or [...] COMPREHENSIVE METABOLIC PANEL Routine 12/25/2018 11:46 AM MANAGEMENT SME Chronic hepatitis C without hepatic coma HEPATITIS C RNA QUANTITATIVE Routine 12/25/2018 11:46 AM MANAGEMENT SME Chronic hepatitis C without hepatic coma from Last 3 Months or Most Recently Relevant to Health Maintenance Results * HEPATITIS C RNA QUANTITATIVE (12/25/2018 11:46 AM MANAGEMENT SME) Hepatitis C RNA PCR, Interp Not Detected Not Detected 12/28/2018 1:31 PM [facility] Blood BLOOD SPECIMEN / Unknown Lab Venipuncture / Unknown 12/25/2018 11:46 AM MANAGEMENT SME 12/25/2018 12:43 PM [facility] Narrative [facility] - 12/28/2018 1:31 PM [facility] The Hepatitis C viral (HCV) RNA analysis utilized a serum sample, real-time reverse title camera operator PCR, and is reported as Not Detected, [...] the isolation of HCV RNA with reverse title camera operator of genomic HCV RNA followed by real-time PCR in the presence of an unrelated RNA internal control. The internal control ensures that RNA is isolated, and that no general significant inhibitors of the RT-PCR process are present. The analysis was performed using a U.S. FDA approved test methodology ([facility] Real Time HCV). Luz Marina Spain APRN-FACTORY EXPERT LAB - CHEMISTRY ANNIE PORTER Final Result [facility] [address] [phone] * (ABNORMAL) COMPREHENSIVE METABOLIC PANEL (12/25/2018 11:46 AM [facility]) BUN 11 7 - 26 mg/dL 12/25/2018 1:19 PM [facility] Creatinine 0.9 0.6 - 1.2 mg/dL 12/25/2018 1:19 PM [facility] Sodium 142 136 - 145 mmol/L 12/25/2018 1:19 PM [facility] Potassium 4.2 3.5 - 4.5 mmol/L 12/25/2018 1:19 PM [facility] Chloride 105 98 - 107 mmol/L 12/25/2018 1:19 PM [facility] CO2 25 22 - 29 mmol/L 12/25/2018 1:19 PM [facility] Glucose 105 70 - 115 mg/dL 12/25/2018 1:19 PM [facility] Calcium 10.3(H) 8.4 - 10.2 mg/dL 12/25/2018 1:19 PM [facility] Protein Total 7.8 6.0 - 8.3 g/dL 12/25/2018 1:19 PM [facility] Albumin 4.3 3.4 - 5.0 g/dL 12/25/2018 1:19 PM [facility] Bilirubin Total 0.4 0.2 - 1.2 mg/dL 12/25/2018 1:19 PM [facility] Alkaline Phosphatase 62 40 - 150 Units/L 12/25/2018 1:19 PM [facility] ALT 20 0 - 55 Units/L 12/25/2018 1:19 PM [facility] AST 18 5 - 34 Units/L 12/25/2018 1:19 PM [facility] Anion Gap 16 8 - 18 12/25/2018 1:19 PM [facility] BUN/Creatinine Ratio 12 7 - 23 12/25/2018 1:19 PM [facility] Osmolality Calculated 294 270 - 300 mOsm/kg 12/25/2018 1:19 PM [facility] Albumin/Globulin Ratio 1.2 1.1 - 2.3 12/25/2018 1:19 PM [facility] eGFR >60 >60 mL/min/1.7 3 m2 12/25/2018 1:19 PM [facility] Blood BLOOD SPECIMEN / Unknown Lab Venipuncture / Unknown 12/25/2018 11:46 AM MANAGEMENT SME 12/25/2018 12:43 PM MANAGEMENT SME Luz Marina Spain LEATHER CRAFTSMAN-FACTORY EXPERT LAB - CHEMISTRY [place] Final Result Performing Organization Address City/State/[facility] Co de Phone Number [facility] [address] [phone] from Last 3 Months or Most Recently Relevant to Health Maintenance Insurance [facility] Care Teams Scheduling Manager Relationship Specialty Start Date End Date Elias Macias MD [address] [place] [address] PCP - General 03/30/18
== END 2025-03-06 07:10 | disposition home or self-care (01) ==
PROVIDERS: PCP Family Medicine; Visit Provider Nurse Practitioner
DX: K74.60 Unspecified cirrhosis of liver (principal); R10.11 Right upper quadrant pain; R14.0 Abdominal distension (gaseous); Z86.19 Personal history of other infectious and parasitic diseases
CPT/HCPCS: 76705

== ENCOUNTER 2025-05-09 15:39 | Outpatient (CLI) | payer OTHER, SELFPAY ==
--- NOTE | ~2025-05-09 | MM_ITS ---
EXAMINATION: MM screening radha BI w be HISTORY: Screening TECHNIQUE: Craniocaudal and mediolateral oblique 3-D tomosynthesis images were obtained and synthetic 2-D images were generated. CAD analysis was submitted and interpreted. COMPARISON: Comparison to multiple prior studies sequentially, with oldest reviewed study dated 05/2025. BREAST PARENCHYMAL COMPOSITION: Not dense: There are scattered areas of fibroglandular density. FINDINGS: There is no evidence of suspicious mass, calcification, or architectural distortion to sugg est malignancy in either breast. There has been no suspicious interval change. IMPRESSION: 1. No mammographic evidence of malignancy. 2. Recommend routine screening mammography in one year. BI-RADS Category 1: Negative Reviewed, dictated and finalized at location A.
== END 2025-05-09 15:40 | disposition home or self-care (01) ==
LOC: ANHIMG 15:42
PROVIDERS: PCP Family Medicine; Visit Provider Registered Nurse
DX: Z12.31 Encounter for screening mammogram for malignant neoplasm of breast (principal)
CPT/HCPCS: 77063; 77067

== ENCOUNTER 2025-05-16 10:57 | Day surgery (SDC) | payer OTHER, SELFPAY ==
[2025-05-02 15:13] VITALS: BMI 29.7
[2025-05-16 11:32] VITALS: BP 127/71; PULSE 81; RESP 20; TEMP 37.1; O2SAT 96; BMI 29.2
[2025-05-16] MEDS: LACTATED RINGERS 1,000 ML 150 ML IV CONT (11:41)
--- NOTE | 2025-05-16 12:08 | P.PNAN_ITS ---
Anes - Initial Pre Proc Eval Procedure: Operation Date: 05/16/25 12:30 Proposed Procedures p Esophagogastroduodenoscopy & Colonoscopy - Brandon Redman MD Date/Time: 05/16/25 12:08 Surgeon: Brandon Redman MD Pre Op Diagnosis: GERD without esophagitis,abd distension Patient Data Age: 60 Gender: F Height: 1.63 m Weight: 77.4 kg Last Vital Signs Temp 98.7 F 05/16/25 11:32 Pulse 81 05/16/25 11:32 Resp 20 05/16/25 11:32 BP 127/71 05/16/25 11:32 Pulse Ox 96 05/16/25 11:32 O2 Del Method Room Air 05/16/25 11:32 Allergies Allergy/AdvReac Type Severity Reaction Status Date / Time No Known Allergies Allergy Verified 05/16/25 11:31 Home Medications ?Medication ?Instructions ?Recorded ?Confirmed ?Type hydrocodone 10 mg-acetaminophen 1 tablet PO PRN PRN Pain 02/09/23 05/02/25 History 325 mg tablet quetiapine 200 mg tablet 200 mg PO HS 02/09/23 05/16/25 History trazodone 100 mg tablet 100 mg PO HS 02/09/23 05/16/25 History duloxetine 60 mg capsule,delayed 60 mg PO DAILY 02/22/23 05/16/25 History release cyclobenzaprine 10 mg tablet 10 mg PO DAILY 05/02/25 05/16/25 History lidocaine 4 % topical patch 1 patch topical TID PRN pain 05/02/25 05/02/25 History (Aspercreme (lidocaine)) Patient hx anesthesia problems: none Family hx anesthesia problems: none Results Review: All pre-operative results and documents have been reviewed as part of the pre- operative evaluation. [facility] Past Medical History Medical History COPD (chronic obstructive pulmonary disease) Emphysema lung GERD (gastroesophageal reflux disease) Chronic hepatitis C without hepatic coma Depression Osteoarthritis Cirrhosis Surgical History Surgical History History of shoulder surgery Family History Family History Other Diabetes mellitus Family history of malignant neoplasm Social History Social History Smoking packs per day: 0.5 Smoking cigarettes per day: 10.0 Years smoked: 38 Smoking pack-years: 19.00 Smoking status: Current some day smoker Tobacco type: cigarettes and e-cigarettes/vaping Smoking end date: 01/28/23 Alcohol intake: never Substance use: current Substance use type: marijuana Other substance usage details: SMOKES MARIJUANA 2 X WK SINCE 2020 Last use: 02/20/23 Do You Feel Safe in your Home?: Yes Lack of Transportation: No Lack of Food: Never True Current Housing: I Have Housing Concerned About Future Housing: No Difficulty Paying Gas/Electric Bills: No Difficulty Paying for Meds: No Currently Unemployed: No Education: High School Diploma/GED Difficulty w/ Childcare or Family Care: Decline to Answer Living arrangements: alone Occupation/Education: occupation Additional occupation/education comments: self employed- [employer] Gender identity (if verbalized by the patient): Female Spiritual care concerns: No Anes - Eval Final PreProcedure Day of Procedure 05/16/25 12:08 Patient weight: overweight Heart: regular rate and rhythm Lungs: decreased breath sounds Airway: Mallampati scale class II Neurological: alert and oriented Last oral intake: >/= 8 hours ASA classification: IV Emergent: yes Anesthetic plan: proceed Anesthesia type and monitoring: general GIVS Results Review: All pre-operative results and documents have been reviewed as part of the pre- operative evaluation. Informed Consent: The patient's anesthetic plan and its attendant risks and benefits were discussed with the patient/family/POA. Questions were solicited and answers provided to the satisfaction of the patient/family/POA.
[2025-05-16] MEDS: SIMETHICONE ORAL SUSPENSION 20 MG/0.3 ML 30 ML BOTTLE 1.8 ML PO (12:15)
--- NOTE | 2025-05-16 12:18 | P.PNAN_ITS ---
Anes - Eval Final PreProcedure Day of Procedure 05/16/25 12:18 Patient weight: overweight Heart: regular rate and rhythm Lungs: decreased breath sounds Airway: Mallampati scale class III Neurological: alert and oriented Last oral intake: >/= 8 hours ASA classification: IV Emergent: no Anesthetic plan: proceed Anesthesia type and monitoring: general GIVS and standard monitoring Results Review: All pre-operative results and documents have been reviewed as part of the pre- operative evaluation. Informed Consent: The patient's anesthetic plan and its attendant risks and benefits were discussed with the patient/family/POA. Questions were solicited and answers provided to the satisfaction of the patient/family/POA.
--- NOTE | 2025-05-16 12:19 | PM.IMHP ---
H&P: HPI History of Present Illness Date/Time: 05/16/25 12:19 Chief Complaint: History of colon polyps-epigastric pain Narrative: The patient has a history of colonic polyps, the last colonoscopy was 8 years ago. In addition, the patient has recurrent, intermittent epigastric burning sensation for which she is referred for EGD. Review of Systems Review of Systems: All systems reviewed & are unremarkable except as noted in HPI and below PMFSH Past Medical History Medical History COPD (chronic obstructive pulmonary disease) Emphysema lung GERD (gastroesophageal reflux disease) Chronic hepatitis C without hepatic coma Depression Osteoarthritis Cirrhosis Surgical History Surgical History History of shoulder surgery Family History Family History Other Diabetes mellitus Family history of malignant neoplasm Social History Social History Smoking packs per day: 0.5 Smoking cigarettes per day: 10.0 Years smoked: 38 Smoking pack-years: 19.00 Smoking status: Current some day smoker Tobacco type: cigarettes and e-cigarettes/vaping Smoking end date: 01/28/23 Alcohol intake: never Substance use: current Substance use type: marijuana Other substance usage details: SMOKES MARIJUANA 2 X WK SINCE 2020 Last use: 02/20/23 Do You Feel Safe in your Home?: Yes Lack of Transportation: No Lack of Food: Never True Current Housing: I Have Housing Concerned About Future Housing: No Difficulty Paying Gas/Electric Bills: No Difficulty Paying for Meds: No Currently Unemployed: No Education: High School Diploma/GED Difficulty w/ Childcare or Family Care: Decline to Answer Living arrangements: alone Occupation/Education: occupation Additional occupation/education comments: self employed- [employer] Gender identity (if verbalized by the patient): Female Spiritual care concerns: No Meds Home Medications and Allergies Home Medications ?Medication ?Instructions ?Recorded ?Confirmed ?Type hydrocodone 10 mg-acetaminophen 1 tablet PO PRN PRN Pain 02/09/23 05/02/25 History 325 mg tablet quetiapine 200 mg tablet 200 mg PO HS 02/09/23 05/16/25 History trazodone 100 mg tablet 100 mg PO HS 02/09/23 05/16/25 History duloxetine 60 mg capsule,delayed 60 mg PO DAILY 02/22/23 05/16/25 History release cyclobenzaprine 10 mg tablet 10 mg PO DAILY 05/02/25 05/16/25 History lidocaine 4 % topical patch 1 patch topical TID PRN pain 05/02/25 05/02/25 History (Aspercreme (lidocaine)) Allergies Allergy/AdvReac Type Severity Reaction Status Date / Time No Known Allergies Allergy Verified 05/16/25 11:31 Vital Signs Vital Signs - 24 hr 05/16/25 11:32 Temperature 98.7 F Pulse Rate 81 Respiratory Rate 20 Blood Pressure 127/71 Pulse Oximetry 96 Oxygen Delivery Room Air Exam Const: General: cooperative and healthy appearing Resp: Effort & Inspection: normal respiratory effort and able to speak in complete sentences Auscultation: clear to auscultation bilaterally Cardio: Rate: regular rate Rhythm: regular rhythm GI: Inspection: normal to inspection GI Palp: No No hepatosplenomegaly present Auscultation: normal bowel sounds Rectal Exam: deferred Skin: General skin exam: normal color Psych: Appearance: grossly normal Mental Status: mental status grossly normal Assessment and Plan Assessment and plan (1) History of colonic polyps: Code(s): Z86.0100 - Personal history of colon polyps, unspecified Status: Acute Assessment and Plan: The patient is deemed a good candidate for the procedures. Consent signed. Will proceed. (2) Epigastric pain: Code(s): R10.13 - Epigastric pain Status: Acute
--- NOTE | 2025-05-16 13:14 | S_PTH ---
PATIENT: Arnoldo Holden LOC: [facility] U#:[id number] AGE/SX: 60/F ROOM: RE05/16/[address]: Brandon Redman MD : 1965 BED: DIS: 05/16/2025 SPEC #: [id number] RECD: 05/16/25 14:04 STATUS: CONI RE #: [id number] ALVIN: 05/16/25 13:[address]: Brandon Redman DEPT: [facility] Surgical RECD BY: Aleyda Li ENTERED: 05/16/25 14:08 SP TYPE: Surgical OTHR DR: Elias Macias MD Tissues: A - Gastric Biopsy B - Gastric Biopsy C - Colon Polypectomy D - Colon Polypectomy E - Colon Polypectomy F - Colon Polypectomy G - Colon Polypectomy Procedures: Hematoxylin and Eosin Stain Gross and Microscopic Level 4
[2025-05-16 13:16] VITALS: BP 112/53; PULSE 69; RESP 26; O2SAT 97
[2025-05-16 13:26] VITALS: BP 126/68; PULSE 62; RESP 22; O2SAT 99
[2025-05-16 13:36] VITALS: BP 139/71; PULSE 60; RESP 20; O2SAT 95
--- NOTE | 2025-05-16 14:04 | SUR.OPER ---
EGD START 1223, END 1229 COLONOSCOPY START 1234, END 1313
== END 2025-05-16 14:11 | disposition home or self-care (01) ==
PROVIDERS: PCP Family Medicine; Referring Provider Nurse Practitioner; Visit Provider Internal Medicine Gastroenterology
PROC: 0DJ08ZZ Inspection of Upper Intestinal Tract, Via Natural or Artificial Opening Endoscopic (ICD-10-PCS; CPT 45378; principal; 2025-05-16 12:30)
DX: Z12.11 Encounter for screening for malignant neoplasm of colon (principal); D12.2 Benign neoplasm of ascending colon; D12.3 Benign neoplasm of transverse colon; D12.4 Benign neoplasm of descending colon; K29.50 Unspecified chronic gastritis without bleeding; B96.81 Helicobacter pylori [H. pylori] as the cause of diseases classified elsewhere; K74.60 Unspecified cirrhosis of liver; J43.8 Other emphysema; K21.9 Gastro-esophageal reflux disease without esophagitis; F32.A Depression, unspecified; K73.8 Other chronic hepatitis, not elsewhere classified; F17.210 Nicotine dependence, cigarettes, uncomplicated; F17.290 Nicotine dependence, other tobacco product, uncomplicated; F12.90 Cannabis use, unspecified, uncomplicated; Z79.891 Long term (current) use of opiate analgesic; Z98.890 Other specified postprocedural states; Z80.9 Family history of malignant neoplasm, unspecified
CPT/HCPCS: 43239; 45385; 88305; J2003; J2704; J7120

== ENCOUNTER 2025-10-25 10:07 | Outpatient (CLI) | payer OTHER, SELFPAY ==
--- NOTE | ~2025-10-25 | CT_ITS ---
EXAMINATION: CT sinus wo con COMPARISON: None HISTORY: Chronic sinusitis unspecified TECHNIQUE: Axial images were obtained without IV contrast. Sagittal, coronal reconstruction images were obtained from the axial views. CT scan performed using dose optimization techniques including the following automated exposure control; adjustment of mA and/or kV; use of iterative reconstruction technique. Automatic exposure control was used to reduce radiation dose. Permanent radiation dose record is archived to PACS. FINDINGS: Visualized brain parenchyma, optic globes and soft tissues appear unremarkable. Minimal mucosal thickening within the frontal sinuses bilaterally. Moderate mucosal thickening within the ethmoidal sinuses. Minimal mucosal thickening within the maxillary and sphenoid sinuses. There is no osseous destruction or wall thickening identified. The ostiomeatal complexes appear grossly patent. The nasal septum is slightly deviated to the right however there is no significant narrowing of the nasal cavities or thickening of the turbinates. IMPRESSION: Sinusitis detailed above Reviewed, dictated and finalized at location P. [facility] IMPRESSION: Sinusitis detailed above
== END 2025-10-25 10:08 | disposition home or self-care (01) ==
PROVIDERS: PCP Family Medicine; Visit Provider Otolaryngology
DX: J32.8 Other chronic sinusitis (principal)
CPT/HCPCS: 70486